=== PATIENT | female | born 1940 | race Caucasian/White ===

== ENCOUNTER 2023-11-15 22:25 | Outpatient (CLI) | payer MEDICARE, BC, SELFPAY | END 2023-11-15 22:26 | disposition home or self-care (01) | LOC: AMB 11-17 11:24 | PROVIDERS: Visit Provider Emergency Medicine Emergency Medical Services | DX: R42 Dizziness and giddiness (principal) | CPT/HCPCS: A0425; A0427 ==

== ENCOUNTER 2023-11-15 23:06 | Emergency (ER) | payer MEDICARE, BC, SELFPAY ==
[2023-11-15 23:17] VITALS: BP 174/83; PULSE 60; RESP 16; TEMP 36.4; O2SAT 97
--- NOTE | 2023-11-15 23:24 | ED.GENADULT ---
HPI - General Adult General Time Seen by Provider: 23:24 Date Seen: 11/15/23 Chief complaint: Dizziness/Vertigo Stated complaint: Dizzyness Time Seen by Provider: 11/15/23 23:24 Source: patient and RN notes reviewed Mode of arrival: ambulatory Limitations: no limitations History of Present Illness HPI narrative: 83 y/o female with history of hypertension, and has a pacemaker, presents with dizziness. Patient notes from room spinning dizziness that started about 7:00 p.m., patient called EMS about 11:15 p.m. because of persistent symptoms. She notes that she has had episodes of vertigo in the past but they do not usually last this long in this episode feels more severe. She denies associated blurry vision, double vision, numbness or tingling the arms or legs, difficulty speaking or swallowing. Symptoms are worse when she moves her head although generally seem to be getting better. Related Data Home Medications Medication Instructions Recorded Confirmed lisinopril 5 mg tablet 5 mg PO DAILY 11/15/23 11/15/23 metoprolol succinate 25 mg 12.5 mg PO DAILY 11/15/23 11/15/23 tablet,extended release 24 hr rosuvastatin .ROUTE 11/15/23 Previous Rx's Medication Instructions Recorded meclizine 25 mg chewable tablet 25 mg PO QID PRN vertigo #20 tabs 11/16/23 Allergies Allergy/AdvReac Type Severity Reaction Status Date / Time Sulfa (Sulfonamide Allergy Verified 11/15/23 23:23 Antibiotics) adhesives Allergy Uncoded 11/15/23 23:23 shell fish Allergy Uncoded 11/15/23 23:23 PFSH PFSH Social History Smoking Status: Never smoker Do you use any of these nicotine containing products: None How often do you have a drink containing alcohol: never How often do you have six or more drinks on one occasion: Never AUDIT-C Alcohol total score: 0 Non-prescribed substance use: denies use Exam Narrative: Exam Narrative: General: Well-developed and well-nourished, no acute distress Head: Atraumatic and normocephalic Eyes: Pupils are equal reactive, extraocular motions intact, conjunctiva clear ENT: External nose and ears are normal, posterior pharynx without erythema or exudate Neck: No midline cervical tenderness, full spontaneous range of motion the neck, trachea midline, no adenopathy Heart: Regular rate and rhythm no murmurs or thrills Lungs: Clear to auscultation bilaterally without wheezes or crackles Abdomen: Soft, nontender, nondistended with active bowel sounds Musculoskeletal: No tenderness, deformity, or edema Neurologic: Awake, alert, and oriented x3, no gross focal neurologic deficits, cranial nerves intact as tested. Able to elicit vertigo with rotation of the head did left although patient says it is mild and improved Psych: Mood and affect are appropriate Skin: No rashes Const: Vital Signs, click to edit/add: Vital Signs - 24 hr 11/15/23 23:17 11/15/23 23:26 11/15/23 23:30 Temperature 97.6 F Pulse Rate 60 60 Pulse Rate [Pulse Oximeter] 60 Respiratory Rate 16 Blood Pressure Blood Pressure [Ri ght Upper Arm] 174/83 H Pulse Oximetry 97 98 98 Oxygen Delivery Me thod Room Air 11/15/23 23:45 11/16/23 00:00 11/16/23 00:03 Temperature Pulse Rate 63 63 62 Pulse Rate [Pulse Oximeter] Respiratory Rate Blood Pressure 153/83 H Blood Pressure [Ri ght Upper Arm] Pulse Oximetry 97 97 97 Oxygen Delivery Me thod 11/16/23 00:04 11/16/23 00:29 11/16/23 00:30 Temperature Pulse Rate 60 62 62 Pulse Rate [Pulse Oximeter] Respiratory Rate Blood Pressure Blood Pressure [Ri ght Upper Arm] Pulse Oximetry 98 98 98 Oxygen Delivery Me thod 11/16/23 00:35 11/16/23 00:35 11/16/23 00:45 Temperature Pulse Rate 60 60 60 Pulse Rate [Pulse Oximeter] Respiratory Rate Blood Pressure Blood Pressure [Ri ght Upper Arm] Pulse Oximetry 98 98 89 Oxygen Delivery Me thod 11/16/23 00:57 11/16/23 01:00 11/16/23 01:03 Temperature Pulse Rate 61 60 62 Pulse Rate [Pulse Oximeter] Respiratory Rate 16 Blood Pressure 145/72 H 146/72 H Blood Pressure [Ri ght Upper Arm] Pulse Oximetry 98 97 96 Oxygen Delivery Me thod 11/16/23 01:03 11/16/23 01:03 11/16/23 01:30 Temperature Pulse Rate 62 62 60 Pulse Rate [Pulse Oximeter] Respiratory Rate 16 Blood Pressure 146/72 H 146/72 H Blood Pressure [Ri ght Upper Arm] Pulse Oximetry 96 96 98 Oxygen Delivery Me thod Room Air 11/16/23 01:32 Temperature Pulse Rate 61 Pulse Rate [Pulse Oximeter] Respiratory Rate Blood Pressure 143/71 H Blood Pressure [Ri ght Upper Arm] Pulse Oximetry 96 Oxygen Delivery Me thod Course Course ED Course: Patient seen examined, prior records reviewed. Patient presents today with some vertigo. Has had episodes like this in the past. Worse with head movement, some nausea but no vomiting. Symptoms are generally improved now. No other focal neurologic deficits and patient has no other complaints. Symptoms are most consistent with peripheral vertigo, Zofran and meclizine are given. CTA will be performed and if this is negative, patient can likely be discharged with outpatient follow-up. Reevaluation(s) Time of Reevaluation #1: 00:30 Reevaluation #1: Labs ordered and independently interpreted by me with mild leukopenia and mild thrombocytopenia,unknown if these are new or old, hemoglobin is normal. Basic metabolic panel is normal, magnesium is normal, COVID and influenza are negative. 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 Care was discussed with Neurosurgery at [place] who recommends follow-up with Neuro Interventional Radiology. Discussed this with patient and son. Questions answered and patient is stable for discharge. Vital Signs Vital signs: Initial Vital Signs Temperature 97.6 F 11/15/23 23:17 Temperature Source Temporal Artery Scan 11/15/23 23:17 Pulse Rate 60 11/15/23 23:17 Respiratory Rate 16 11/15/23 23:17 Blood Pressure 174/83 H 11/15/23 23:17 Blood Pressure Mean 113 H 11/15/23 23:17 Blood Pressure Position Supine 11/15/23 23:17 Pulse Oximetry 97 11/15/23 23:17 Oxygen Delivery Method Room Air 11/15/23 23:17 Vital Signs Temperature 97.6 F 11/15/23 23:17 Pulse Rate 60 11/15/23 23:17 Respiratory Rate 16 11/15/23 23:17 Blood Pressure 174/83 H 11/15/23 23:17 Pulse Oximetry 97 11/15/23 23:17 Oxygen Delivery Method Room Air 11/15/23 23:17 Temperature 97.6 F 11/15/23 23:17 Pulse Rate 61 11/16/23 01:32 Respiratory Rate 16 11/16/23 01:03 Blood Pressure 143/71 H 11/16/23 01:32 Pulse Oximetry 96 11/16/23 01:32 Oxygen Delivery Method Room Air 11/16/23 01:30 Medications Administered Medications: Discontinued Medications Generic Name Dose Route Start Last Admin Trade Name Barbara PRN Reason Stop Dose Admin Meclizine HCl 25 mg 11/15/23 23:36 11/15/23 23:45 Meclizine Hcl 25 Mg Tablet PO 11/15/23 23:37 25 mg ONCE ONE Administration Ondansetron HCl 4 mg 11/15/23 23:36 11/15/23 23:45 Ondansetron 2 Mg/Ml Inj IVP 11/15/23 23:37 4 mg ONCE ONE Administration Medical Decision Making Lab Data Labs: Lab Results 11/15/23 11/16/23 11/16/23 Range/Units 23:55 00:05 00:30 WBC 3.87 L (4.50-11.00) K/uL RBC 4.12 (4.00-5.20) m/uL Hgb 12.3 (12.0-16.0) gm/dL Hct 38.3 (33.0-51.0) % MCV 93 (80-100) fL MCH 30 (26-34) pg MCHC 32 (32-36) gm/dL RDW Coeff of Agata 13.4 (11.5-15.5) % Plt Count 106 L (140-440) K/uL Neut % (Auto) 72.6 H (42.0-72.0) % Lymph % (Auto) 19.9 L (20-44) % [place] % (Auto) 5.2 (0.0-11.0) % Eos % (Auto) 1.0 (0.0-7.0) % Baso % (Auto) 0.3 (0.0-3.0) % Neut # (Auto) 2.80 (1.7-7.0) K/uL Lymph # (Auto) 0.80 L (0.90-2.90) K/uL [place] # (Auto) 0.20 (0.00-0.90) K/UL Eos # (Auto) 0.00 (0.00-0.50) K/uL Baso # (Auto) 0.00 (0.00-0.30) K/uL Abs Immat Gran (auto) 0.00 (0.00-0.30) K/uL Imm/Tot Granulo (auto) 1.0 % Sodium 138 (135-149) mmol/L Potassium 4.1 (3.6-5.1) mmol/L Chloride 108 (96-114) mmol/L Carbon Dioxide 24 (20-32) mmol/L Anion Gap 6 L (7-15) mEq/L BUN 28 (7-30) mg/dL Creatinine 0.7 (0.5-1.5) mg/dL Estimated GFR 86 ml/min Glucose 117 H (60-115) mg/dL Calcium 9.0 (8.4-10.6) mg/dL Magnesium 2.1 (1.5-2.6) mg/dL SARS-CoV-2 (PCR) Negative SARS-CoV-2 (Negative) Influenza Type A (PCR) Negative PCR FLU A (Negative) Influenza Type B (PCR) Negative PCR FLU B (Negative) RSV (PCR) Negative PCR RSV (Negative) Lab Acknowledgement 11/16/23 Range/Units 00:35 WBC (4.50-11.00) K/uL RBC (4.00-5.20) m/uL Hgb (12.0-16.0) gm/dL Hct (33.0-51.0) % MCV (80-100) fL MCH (26-34) pg MCHC (32-36) gm/dL RDW Coeff of Agata (11.5-15.5) % Plt Count (140-440) K/uL Neut % (Auto) (42.0-72.0) % Lymph % (Auto) (20-44) % [place] % (Auto) (0.0-11.0) % Eos % (Auto) (0.0-7.0) % Baso % (Auto) (0.0-3.0) % Neut # (Auto) (1.7-7.0) K/uL Lymph # (Auto) (0.90-2.90) K/uL [place] # (Auto) (0.00-0.90) K/UL Eos # (Auto) (0.00-0.50) K/uL Baso # (Auto) (0.00-0.30) K/uL Abs Immat Gran (auto) (0.00-0.30) K/uL Imm/Tot Granulo (auto) % Sodium (135-149) mmol/L Potassium (3.6-5.1) mmol/L Chloride (96-114) mmol/L Carbon Dioxide (20-32) mmol/L Anion Gap (7-15) mEq/L BUN (7-30) mg/dL Creatinine (0.5-1.5) mg/dL Estimated GFR ml/min Glucose (60-115) mg/dL Calcium (8.4-10.6) mg/dL Magnesium (1.5-2.6) mg/dL SARS-CoV-2 (PCR) (Negative) Influenza Type A (PCR) (Negative) Influenza Type B (PCR) (Negative) RSV (PCR) (Negative) Lab Acknowledgement Test Added ECG Data Attestation: I personally reviewed and interpreted this ECG as follows: Prior ECG tracings: available for review Interpretation: Performed at 12:39 a.m. demonstrates paced rhythm, rate 63, no acute ischemic changes, QTC 534. No prior for comparison Discharge Plan Discharge Clinical Impression: Vertigo, Pseudoaneurysm Patient Disposition: Home, Self-Care Condition: Improved Instructions: Vertigo (ED) Additional Instructions: Take Zofran and meclizine as needed for dizziness Follow-up with primary care in 5-7 days Call [facility] [phone] to schedule and appointment with neurointerventional radiology. Activity Level: No Restrictions Discharge Diet: Regular Prescriptions: New meclizine 25 mg tablet,chewable 25 mg PO QID PRN (Reason: vertigo) Qty: 20 0RF No Action rosuvastatin .ROUTE metoprolol succinate 25 mg tablet extended release 24 hr 12.5 mg PO DAILY lisinopril 5 mg tablet 5 mg PO DAILY Follow Up/Referrals: Provider,Not a Local [Primary Care Provider] - Stand Alone Forms: MyHealth Info Instructions
[2023-11-15 23:26] VITALS: PULSE 60; O2SAT 98
[2023-11-15 23:30] VITALS: PULSE 60; O2SAT 98
--- NOTE | 2023-11-15 23:36 | CT_ITS ---
Patient: MIGUEL A MORA Facility:?[facility] Patient ID:?[id number] Site Patient ID:?[id number] Site :?[id number] Study:?CT-Neck Angio with 95cc [id number]/19/2024 12:39:30 AM Ordering Physician:April Diaz Final Report: DATE: 11/16/2023 CLINICAL HISTORY: Patient with dizziness. TECHNIQUE: Standard helical CT image acquisition of the neck up to the skull base after bolus intravenous contrast enhancement. 2D and 3D MIP images for post-processing were performed and interpreted on an independent workstation and 3D images were permanently archived. COMPARISON: CT same day. FINDINGS: The origins of the great vessels from the aortic arch are patent. The origin of the right vertebral artery is patent. The origin of the left vertebral artery is patent. The common carotid arteries are patent. There is no stenosis at the origin of the right internal carotid artery. There is no stenosis at the origin of the left internal carotid artery. The rest of the cervical segments of the internal carotid arteries are patent up to the skull base. The vertebral arteries are codominant. The cervical segments of the vertebral arteries are patent up to the skull base. The visualized lung apices are unremarkable. The thyroid gland demonstrates a goiter. The soft tissues of the neck are unremarkable. There are degenerative changes in the cervical spine. IMPRESSION: Patent cervical vasculature. Please note that all CT scans at this facility use dose modulation, iterative reconstruction, and/or weight-based dosing when appropriate to reduce radiation dose to as low as reasonably achievable. 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 Dictated by Violet Lobo MD @ Nov 16 2023 10:08AM Signed by:?Violet Lobo MD @11/16/2023 10:03:44 AM (Electronic Signature)
--- NOTE | 2023-11-15 23:36 | CT_ITS ---
Patient: MIGUEL A MORA Facility:?[facility] Patient ID:?[id number] Site Patient ID:?[id number]. Site :?[id number] Study:?CT-Head Angio with 95cc -7/19/2024 12:39:10 AM Ordering Physician:April Diaz Final Report: DATE: 11/16/2023 CLINICAL HISTORY: Patient with dizziness. TECHNIQUE: Standard helical CT image acquisition through the intracranial circulation following intravenous administration of contrast material with bolus tracking. 2D and 3D MIP images for post-processing were performed and interpreted on an independent workstation and 3D images were permanently archived. COMPARISON: CT same day. FINDINGS: There is no cerebral aneurysm or large vessel occlusion. The right internal carotid artery is normal. The right middle cerebral artery and its branches are normal. The right anterior cerebral artery and its branches are normal. The left internal carotid artery is normal. The left middle cerebral artery and its branches are normal. The left anterior cerebral artery and its branches are normal. The anterior communicating artery is well visualized and appears normal. The right vertebral artery and PICA are normal. The left vertebral artery and PICA are normal. The vertebral arteries are codominant. The basilar artery is patent and appears normal. The right posterior cerebral artery is normal. The left posterior cerebral artery is normal. The visualized venous structures are patent. IMPRESSION: Patent proximal intracranial vasculature without intracranial aneurysms. Please note that all CT scans at this facility use dose modulation, iterative reconstruction, and/or weight-based dosing when appropriate to reduce radiation dose to as low as reasonably achievable. Dictated by Violet Lobo MD @ 11/16/2023 10:06:50 AM Signed by:?Violet Lobo MD @11/16/2023 10:06:50 AM (Electronic Signature)
[2023-11-15 23:45] VITALS: PULSE 63; O2SAT 97
[2023-11-15] MEDS: ONDANSETRON 2 MG/ML inj 4 MG IVP (23:45)
[2023-11-15] MEDS: MECLIZINE HCL 25 MG TABLET PO (23:45)
[2023-11-16] VITALS (12 sets, daily range): BP systolic 143–153; BP diastolic 71–83; PULSE 60–63; RESP 16; O2SAT 89–98
[2023-11-16 00:09] LABS: Basophils Percent Auto 0.3 % (0.0-3.0); Hematocrit 38.3 % (33.0-51.0); Hemoglobin* 12.3 gm/dL (12.0-16.0); Lymphocytes Percent Auto 19.9 % (20-44); Mean Corpuscular HGB Conc 32 gm/dL (32-36); Mean Corpuscular Hemoglobin 30 pg (26-34); Mean Corpuscular Volume 93 fL (80-100); Monocytes Percent Auto 5.2 % (0.0-11.0); Neutrophils Percent Auto 72.6 % (42.0-72.0); Platelet Count* 106 K/uL (140-440); RDW Coefficient of Variation % 13.4 % (11.5-15.5); Red Blood Count 4.12 m/uL (4.00-5.20); White Blood Count* 3.87 K/uL (4.50-11.00)
[2023-11-16 00:23] LABS: Slide Review Reflex No
[2023-11-16 00:28] LABS: Magnesium* 2.1 mg/dL (1.5-2.6)
--- NOTE | 2023-11-16 00:33 | PC.NURSE ---
Pt return from CT via [facility] instructed results pt results back in 45 min
[2023-11-16 00:51] LABS: Anion Gap 6 mEq/L (7-15); Blood Urea Nitrogen* 28 mg/dL (7-30); Carbon Dioxide* 24 mmol/L (20-32); Chloride* 108 mmol/L (96-114); Creatinine* 0.7 mg/dL (0.5-1.5); Estimated Glomerular Filt Rate 86 ml/min; Glucose* 117 mg/dL (60-115); Potassium* 4.1 mmol/L (3.6-5.1); Sodium* 138 mmol/L (135-149)
[2023-11-16 01:22] LABS: PCR FLU A Negative PCR FLU A (Negative); PCR FLU B Negative PCR FLU B (Negative); PCR RSV Negative PCR RSV (Negative); SARS PCR* Negative SARS-CoV-2 (Negative)
--- NOTE | 2023-11-16 04:19 | ED.NURSE ---
Pt left white tank top in room after leaving. Pt and pt's son called and VM left. Tank top placed in pt belongings bag with pt's label and placed at front registration desk incase pt decides to pick it up.
== END 2023-11-16 01:55 | disposition home or self-care (01) ==
PROVIDERS: Emergency Provider Family Medicine
DX: R42 Dizziness and giddiness (principal); I72.9 Aneurysm of unspecified site
CPT/HCPCS: 36415; 70496; 70498; 80048; 83735; 85025; 87631; 93005; 96374; 99285; A9270; J2405; Q9967

== ENCOUNTER 2024-06-26 13:00 | Outpatient (RCR) | payer MEDICARE, BC, SELFPAY | END 2024-09-22 11:22 | disposition home or self-care (01) | PROVIDERS: Visit Provider Family Medicine | DX: R42 Dizziness and giddiness (principal); M25.551 Pain in right hip; M25.552 Pain in left hip; M54.2 Cervicalgia; R26.81 Unsteadiness on feet; M25.60 Stiffness of unspecified joint, not elsewhere classified; Z51.89 Encounter for other specified aftercare | CPT/HCPCS: 97110; 97112; 97140; 97161 ==

== ENCOUNTER 2025-08-20 12:40 | Outpatient (CLI) | payer MEDICARE, BC, SELFPAY | END 2025-08-20 12:41 | disposition home or self-care (01) | LOC: AMB 08-22 18:02 | PROVIDERS: PCP Family Medicine; Visit Provider Family Medicine | DX: R05.9 Cough, unspecified (principal); R06.02 Shortness of breath | CPT/HCPCS: A0425; A0427 ==

== ENCOUNTER 2025-08-20 13:30 | Inpatient (IN) | payer MEDICARE, BC, SELFPAY ==
[2025-08-20] VITALS (21 sets, daily range): BP systolic 94–130; BP diastolic 49–84; PULSE 65–74; RESP 18–38; TEMP 36.4–36.6; O2SAT 90–100; BMI 21.7; BMI 21.8
--- NOTE | 2025-08-20 13:32 | CRLHL7_ITS ---
For Patients: As a result of the 21st Century Cures Act, medical imaging exams and procedure reports are released immediately into your electronic medical record. You may view this report before your referring provider. If you have questions, please contact your health care provider. INDICATION: Pulmonary embolism suspected, high probability. TECHNIQUE: CT chest PE was acquired with 95 cc Omnipaque 350 IV contrast. Coronal and MIP reconstructions were performed. COMPARISON: None. FINDINGS: Evaluation for pulmonary embolism is limited by motion. No pulmonary embolism is seen. The aorta is unopacified. Nonaneurysmal. Lower lobe traction bronchiectasis is seen. There is extensive lower lobe predominant patchy ground-glass which is more peripheral within the upper lung alba. There is some peripheral reticulation. There may be early lower lobe honeycombing with no definitive honeycombing otherwise seen. No significant pleural effusion. The thyroid is prominent with likely nodularity. Follow-up thyroid ultrasound is recommended. Prominent precarinal lymph nodes noted. Recommend close attention on follow-up. Prominent left hilar lymph node is also noted measuring approximate 12 millimeters (series 4, image 95). Cardiomegaly is present. No significant effusion. Left pacemaker is noted. Images of the upper abdomen are unremarkable. No fractures. IMPRESSION: 1. Extensive lower lobe predominant patchy ground-glass with traction bronchiectasis. Differential includes diffuse lung injury. Interstitial lung disease, and combination of interstitial lung disease and superimposed pneumonia. Recommend correlation with a patient`s clinical history. Short-term high-resolution chest CT is recommended in 1 month. 2. No definite pulmonary embolism is seen. 3. Indeterminate mediastinal/hilar lymphadenopathy. Recommend close attention on follow-up. 4. Enlarged thyroid. Recommend correlation with routine thyroid ultrasound. Please note that all CT scans at this facility use dose modulation, iterative reconstruction, and/or weight-based dosing when appropriate to reduce radiation dose to as low as reasonably achievable. Dictated by Jonathan Batres MD @ 08/20/2025 3:19:09 PM (Electronically Signed)
--- OUTSIDE RECORDS SUMMARY | 2025-08-20 13:34 | XMS_ITS | Clinical Summary ---
Author Organization [facility] Address [address] [place] [id number] Care Team Providers Care Nurse Executive Name Role Phone Jenna Gallegos Primary Care Provider [phone] Allergies Active AllergyReactionsCriticalityNoted DateCommentsAdhesive Tape-Silicones Tsswyok8008/20/2023Shellfish DerivedNausea And Dcfdfzzh37/22/2023Sulfa (Sulfonamide Antibiotics)Zzsjvlvxukoyti59/22/2023 Medications MedicationSigDispense QuantityRefillsLast FilledStart DateEnd DateStatus fexofenadine (Rona Allergy) 180 mg tablet Take 180 mg by mouth once daily with a meal. Do not crush or chew.Active meclizine chewable (ANTIVERT) 25 mg tablet Chew 25 mg by mouth 3 times daily if needed.11/16/2023ctive ondansetron (ZOFRAN ODT) [address] 4 mg on the tongue every 8 hours if needed for Nausea/Vomiting.11/16/2023 Active aspirin (ECOTRIN) 81 mg enteric coated tablet Indications:Fibromuscular dysplasiaTake 1 Tablet (81 mg) by mouth once daily with a meal.4Active ketoconazole 2 % cream PLEASE SEE ATTACHED FOR DETAILED EJGJCAPVNE62/26/2025Active Graduated Compression Stockings Indications:Fibromuscular dysplasia,Venous catgtqforuwqt09-72 mm/Hg thigh high compression stockings - Venous insufficiency 2 Packet 5Active ipratropium (ATROVENT NASAL) 21 mcg (0.03 %) nasal spray Indications:Allergic rhinitis due to pollen, unspecified seasonalityInhale 2 Sprays into affected nostril(s) three times daily. [place] dose in each nostril. 90 mL 5Active lisinopriL (PRINIVIL; ZESTRIL) 5 mg tablet Indications:Non-ischemic cardiomyopathy (HC)Take 1 Tablet (5 mg) by mouth once daily. 90 Tablet tive metoprolol succinate (TOPROL XL) 25 mg Sustained-Release tablet Indications:Non-ischemic cardiomyopathy (HC),Atrial tachycardia (HC)Take 0.5 Tablets (12.5 mg) by mouth once daily. 45 Tablet tive rosuvastatin (CRESTOR) 10 mg tablet Indications:Non-ischemic cardiomyopathy (HC)TAKE 1 TABLET BY MOUTH EVERYDAY AT BEDTIME 90 Tablet tive metroNIDAZOLE (METROCREAM) 0.75 % cream Indications:RosaceaApply topically to affected area(s) two times daily. 45 g 5Active Active Problems ProblemNoted DateDiagnosed DateStage 3 chronic kidney disease, unspecified whether stage 3a or 3b CKD06/15/2025trial tachycardia, zimngimhpz95/03/2024 Atrial bwtuzlfouhi17/22/2023Non-ischemic ddghtgtzpaxsxw44/22/2023 Resolved Problems ProblemNoted DateDiagnosed DateResolved DateNon-sustained ventricular gwbcmylbstx70 Encounters DateTypeDepartmentCare TebjMhwxqtvblfe54/21/4582Ctdvli68/04/2025 11:00 AM RN TELEHEALTH [facility] [address] [address] [facility] (Hearing test)07/03/20259760Csufgu55/27/2025 1:30 PM CDTNurse/Clinic Staff Only [address] [address] Blood Pressure (114/56)06/25/2025 1:00 PM CDTAncillary Procedure [facility] [address] [place] [address] 06/25/20253458Hceowx34/17/2025 11:05 AM CDTOffice Visit [address] [address] Jenna Gallegos, DO Medicare ANNUAL (subsequent) Visit (84 yr/); Leg Pain/problem (would like second opinion on leg surgery that is recommended for circulation from Dr. Oro) 06/15/2025Refill [facility] [address] [place] [address] Jenna Gallegos, DO Refill Request; QPCTOUQPHP85/17/2428Mnibpp50/15/2025Refill [facility] [address] [place] [address] Jenna Gallegos, DO Refill Request (Lisinopril)05/21/2025Orders Only [facility] [address] [place] [address] Renee Oro MD <No scans attached>from Last 3 Months Immunizations ImmunizationAdministration DatesNext DueCOVID-19 VACCINE SPIKEVAX (MODERNA 50MCG/0.5ML) 12YO+ PFS12/13/2024Influenza, High-dose Hkkkgyfbivh26/04/2025, 4RSV, Recombinant ADJ Reconstituted (Arexvy 120MCG/0.5mL)10/10/2024Tdap 03/23/2025Zoster (Shingrix-RZV, recombinant)03/23/2025 Social History Tobacco UseTypesPacks/DayYears UsedDateSmoking Tobacco: FormerCigarettes0.150498 - 1992Smokeless Tobacco: Never Tobacco Cessation:Counseling Given: Not Answered Comments:quit when she was 22 Alcohol UseStandard Drinks/WeekCommentsYes0 (1 standard drink = 0.6 oz pure alcohol)a beer once a monthPHQ-2AnswerDate RecordedPHQ-2 TOTAL USEUL626 Social ConnectionsAnswerDate RecordedDo you often feel lonely or isolated from those around you?404lcohol UseAnswerDate RecordedHow often do you have a drink containing alcohol?110How many drinks containing alcohol do you have on a typical day when you are drinking?How often do you have five or more drinks on one occasion?Financial Resource StrainAnswer Date RecordedDifficulty of Paying Living Vwzbxrah840/16/2025Difficulty of Paying Living ExpensesNot on file12/13/2024Food InsecurityAnswerDate RecordedDo you worry your food will run out before you are able to buy more? Transportation NeedsAnswerDate RecordedDoes lack of transportation keep you from medical appointments?Does lack of transportation keep you from work, meetings or getting things that you need?Housing StabilityAnswerDate RecordedWhat is your housing situation today?UtilitiesAnswerDate RecordedDo you have trouble paying for utilities (for example, heat, electricity, water, phone)?CommentsUnknownSex and Gender InformationValueDate RecordedSex Assigned at BirthNot on fileLegal SexFemale 08/04/2023 10:14 AM CSTGender IdentityNot on fileSexual OrientationNot on file Last Filed Vital Signs Vital SignReadingTime TakenCommentsBlood Ggjbblcq638/561 1:56 PM CDT Msxjj236606/25/2025 1:19 PM XEENrjssvlumsm01.5 ??C (97.7 ??F)06/15/2025 11:13 AM CDTRespiratory Rate--Oxygen Bqgnotrjxn25%06/25/2025 1:19 PM CDTInhaled Oxygen Concentration--Vtrpra62.4 kg (139 lb 12.8 oz)06/15/2025 11:13 AM TPADavekm677.4 cm (5' 7.09)06/15/2025 11:13 AM CDTBody Mass Index21.8406/15/2025 11:13 AM CDT Plan of Treatment DateTypeDepartmentCare Team (Latest Contact Info)Qstjhfmocpr88/26/2025 11:05 AM CSTOffice Visit [facility] [address] [facility] [place] [address] Jenna Gallegos DO [address] [facility] [place] [address] 09/19/2025ardiac Device Check [facility] [phone] 10/08/2025 11:00 AM CSTAncillary Procedure [facility] [address] [place] [address] Health MaintenanceDue DateLast DoneCommentsCOVID-19 vaccine series (2024- season)/11/2024, 12/13/2024, 4BMI (ht and wt on same day) for age 18+/, 04/26/2024, 08/20/2023epression screening for age 12+/, 04/26/2024, 12/03/2023, Additional history exists Medicare Wellness for age 65+, 04/26/2024Zoster (shingles) series for age 50+ (2 of 2)Postponed from 05/18/2025 (Provider discretion)Tetanus uwwgqbd87/25/21539303/23/2025RSV vaccine for adults or mpogvpspyBztmejlsh50/11/2025Influenza BhbwrhmPpgjhwpix97/04/2025, 05/05/2024 DEXA/DXA scan for age 65+Bkspphrhl98/27/2025Hepatitis B series for 19+Aged OutNo longer eligible based on patient's age to complete this topicPneumococcal series for age 50+Discontinued Procedures Procedure NamePriorityDate/TimeAssociated DiagnosisCommentsXR DXA BONE DENSITY 2 SITES AXIAL AND 1 SITE COGGWJXTNWAzcxuvt82/27/2025 1:13 PM CDT Postmenopausal LIPID PANEL W REFLEX MEASURED HBYItjaoxd23/17/2025 12:00 PM CDT Mixed hyperlipidemia BASIC METABOLIC MDMVUYddsjci98/17/2025 12:00 PM CDT Non-ischemic cardiomyopathy (HC) Atrial tachycardia (HC) from Last 3 Months Results * (ABNORMAL) XR DXA BONE DENSITY 2 SITES AXIAL AND 1 SITE PERIPHERAL (06/25/2025 1:13 PM CDT)Anatomical RegionLateralityModalityLUMBAR SPINEOtherSpecimen (Source)Anatomical Location / LateralityCollection Method / VolumeCollection TimeReceived Time Impressions 07/01/2025 4:17 PM RN TELEHEALTH Osteoporosis. RECOMMENDATIONS: The National Osteoporosis Foundation recommends pharmacologic treatment for patients with T-scores of -2.5 or less, patients with prior history of fragility fractures, or patients with 10-year probability of greater than 3% at hips or greater than 20% of suffering major osteoporotic fractures. Recommend continued optimization of calcium and vitamin D intake through dietary means and/or supplementation and regular exercise. Consider pharmacologic therapy for osteoporosis. Follow-up bone density reading in 2 years if therapy initiated to assess therapeutic efficacy. Kyara English PA-C [facility] 07/01/2025 Narrative 07/01/2025 4:17 PM RN TELEHEALTH For Patients: Results are automatically released to your [employer] [facility] account once available, in compliance with federal regulations. This means that you may see your results before your provider has had a chance to review them. Please allow 2-3 business days for your provider to comment on the results. XR DXA Bone Mineral Density (BMD) EXAM LOCATION: [address] [address] PATIENT NAME: Lisa Norman DATE OF : 1940 EXAM DATE: 06/25/2025 REQUESTING PROVIDER: Jenna Gallegos DO GENDER AT : female HEIGHT: 5' 7.09 (06/15/2025) WEIGHT: ??139 lb 12.8 oz (06/15/2025) MENOPAUSAL STATUS: Postmenopausal RACE/ETHNICITY: White RISK FACTORS: Smoking (prior) and White Race CURRENT MEDICATION FOR BONE LOSS: NONE INDICATION: Post-Menopause COMPARISON DATE(S): None DXA scans are compared to prior studies for a patient only when the two (or more) studies were performed on the same scanner. It is not possible to compare data generated on one scanner to data from another because there are not standards in DXA equipment. This applies even if the two scanners are made by the same lacquer pin press operator. PROCEDURE: Dual-energy x-ray absorptiometry performed with routine technique. Reporting is completed in the form of a T-score. The T-score represents the standard deviation from peak bone mass based on young healthy adult. A Z-score is used for diagnosis in premenopausal women, and for men under the age of 50. FINDINGS: RESULT LUMBAR SPINE L2 - L4 ??(EXCLUDE L1) ??BMD: 1.477 g/cm2 T-Score: + 2.1 Z-Score: + 4.1 Change from prior: ??None RESULTS FEMUR Left femoral neck BMD: 1.021 g/cm2 T-Score: - 0.1 Z-Score: + 2.3 Change from prior: ??None Right femoral neck BMD: 1.000 g/cm2 T-Score: - 0.3 Z-Score: + 2.1 Change from prior: ??None Left hip BMD: 0.872 g/cm2 T-Score: - 1.1 Z-Score: + 1.2 Change from prior: ??None Right hip BMD: 0.915 g/cm2 T-Score: - 0.7 Z-Score: + 1.6 Change from prior: ??None RESULT FOREARM Left Forearm distal radius BMD: 0.484 g/cm2 T-Score: - 3.1 Z-Score: + 0.0 Change from prior: ??None WHO criteria: Normal: T-score at or above -1 SD Osteopenia: T-score between -1.1 and -2.4 SD Osteoporosis: T-score at or below -2.5 SD Authorizing ProviderResult TypeResult StatusTamara Ramona Detert DODEXAFinal Result * (ABNORMAL) LIPID PANEL W REFLEX MEASURED LDL (06/15/2025 12:00 PM CDT) ComponentValueRef RangeTest MethodAnalysis TimePerformed AtPathologist SignatureCHOLESTEROL, DKVDK475<200 mg/dL06/16/2025 5:00 AM CDTQUEST PVSERRMLDUVVAJBEVQAYACNP45<150 mg/dL06/16/2025 5:00 AM CDTQUEST DIAGNOSTICSHDL LWLUYIKJDGF86> OR = 50 mg/dL06/16/2025 5:00 AM CDTQUEST DIAGNOSTICSNON HDL UWAAXAUIVNV465<130 mg/dL (calc)06/16/2025 5:00 AM CDTQUEST DIAGNOSTICSComment: For patients with diabetes plus 1 major ASCVD risk factor, treating to a non-HDL-C goal of <100 mg/dL (LDL-C of <70 mg/dL) is considered a therapeutic option. CHOL/HDLC RATIO2.7<5.0 (calc)06/16/2025 5:00 AM CDT[facility] LDL-CIZZUHRKOWN882(H)mg/dL (calc)06/16/2025 5:00 AM CDTQUEST DIAGNOSTICSComment: Reference range: <100 Desirable range <100 mg/dL for primary prevention; <70 mg/dL for patients with CHD or diabetic patients with > or = 2 CHD risk factors. LDL-C is now calculated using the German calculation, which is a validated novel method providing better accuracy than the Friedewald equation in the estimation of LDL-C. Jose Raul SIFUENTES et al. SUSSY. 2013;310(19): 7298-5050 (http://education.[employer].SavingGlobal/faq/QCI072) Specimen (Source)Anatomical Location / LateralityCollection Method / Volume Collection TimeReceived TimeBloodBLOOD SPECIMEN / UnknownQuest Collect / Unknown 06/15/2025 12:00 PM CDT1 12:00 PM CDT Narrative Authorizing ProviderResult TypeResult StatusTamara Ramona Izaguirret DOCHEMISTRYFinal ResultPerforming OrganizationAddressCity/State/ZIP CodePhone Number [facility] [address] [phone], * (ABNORMAL) BASIC METABOLIC PANEL (06/15/2025 12:00 PM CDT)ComponentValueRef RangeTest MethodAnalysis TimePerformed AtPathologist RzwnzapeoLCEHDX076885 - 146 mmol/L1 5:00 AM CDTQUEST DIAGNOSTICSPOTASSIUM4.83.5 - 5.3 mmol/L 06/16/2025 5:00 AM CDTQUEST DIAGNOSTICSCARBON HFXMBVN7049 - 32 mmol/L 06/16/2025 5:00 AM CDTQUEST IXUASLPDMIRFDIPWER7264 - 99 mg/dL06/16/2025 5:00 AM CDTQUEST DIAGNOSTICSComment: ? Fasting reference interval CALCIUM9.48.6 - 10.4 mg/dL06/16/2025 5:00 AM CDTQUEST DIAGNOSTICSCREATININE1.12 (H)0.60 - 0.95 mg/dL06/16/2025 5:00 AM CDTQUEST DIAGNOSTICSBUN/CREATININE RATIO 226 - 22 (calc)06/16/2025 5:00 AM CDTQUEST RZQWPWNSBRSZNWM39(L)> OR = 60 mL/min/1.83a97706/16/2025 5:00 AM CDTQUEST DIAGNOSTICSUREA NITROGEN (BUN)257 - 25 mg/dL06/16/2025 5:00 AM CDTQUEST DIAGNOSTICSELECTROLYTE FHIISJZ75 - 17 mmol/L (calc)06/16/2025 5:00 AM CDTQUEST OJOTOPAVKCINEDVVYEW41804 - 110 mmol/L 06/16/2025 5:00 AM CDTQUEST DIAGNOSTICSSpecimen (Source)Anatomical Location / LateralityCollection Method / VolumeCollection TimeReceived TimeBloodBLOOD SPECIMEN / UnknownQuest Collect / Kbemcwb1806/15/2025 12:00 PM CDT1 12:00 PM CDT Narrative Authorizing ProviderResult TypeResult StatusTamara Ramona Detert DOCHEMISTRYFinal ResultPerforming OrganizationAddressCity/State/ZIP CodePhone Number [facility] [address] [phone], from Last 3 Months Insurance * Guarantor: Lisa Norman TypeRelation to PatientDate of BirthPhone Billing AddressPersonal/FuxfxxBfvd55/26/1941 [id number] [place] [address] Care Teams Team MemberRelationshipSpecialtyStart DateEnd Date Jenna [place]leg[place] [address] PCP - GeneralFamily Uelkdehx43/7/23
--- NOTE | 2025-08-20 13:36 | ED_ITS ---
HPI - General Adult General Date Seen: 08/20/25 Chief complaint: Shortness of Breath/Dyspnea Stated complaint: Shortness of Breath, weakness Time Seen by Provider: 08/20/25 13:31 History of Present Illness HPI narrative: Patient is an 84-year-old brought in by EMS. She lives at home with her daughter, for the past 5 days she has been having worsening shortness of breath and cough. She says that she knew she was getting sick last week when she started to feel just generally weak and tired. The cough has gotten steadily worse. She is not chronically on oxygen, denies any under lying lung disease, no history of smoking. [employer] report notes that her O2 sats on room air were in the mid 80s, they put her on a few L by nasal cannula and report that she improved to the low 90s on that. She feels improved on oxygen. She denies chest pain, abdominal pain, vomiting, diarrhea, lower extremity swelling beyond her usual, or other new symptoms. Past medical history reviewed and notable for hypertension. She says she is generally quite healthy and active. Related Data Home Medications ?Medication ?Instructions ?Recorded ?Confirmed lisinopril 5 mg tablet 5 mg PO DAILY 11/15/2308/20 metoprolol succinate 25 mg 12.5 mg PO DAILY 11/15/23 1 10/21/24 tablet,extended release 24 hr aspirin 81 mg tablet,delayed 81 mg PO DAILY 08/20/25 1 10/21/24 release ([place] [facility]) fexofenadine 180 mg tablet 180 mg PO DAILY 08/20/25 ([facility]) ipratropium bromide 21 mcg (0.03 2 spray intranasal TI D 08/20/25 08/20/25 %) nasal spray meclizine 25 mg chewable tablet 25 mg PO TID PRN verti go 08/20/25 08/20/25 rosuvastatin 10 mg tablet 10 mg PO HS 08/20/25 5 Allergies Allergy/AdvReac Type Severity Reaction Status Date / Time Sulfa (Sulfonamide Allergy Verified 08/20/25 14:58 Antibiotics) adhesives Allergy Uncoded 08/20/25 14:58 shell fish Allergy Uncoded 08/20/25 14:58 Review of Systems Status of ROS: Reports: 10 or more systems reviewed and unremarkable except as noted in History and below [facility] Social History Smoking Status: Never smoker Do you use any of these nicotine containing products: None How often do you have a drink containing alcohol: never How often do you have six or more drinks on one occasion: Never AUDIT-C Alcohol total score: 0 Non-prescribed substance use: denies use Exam Narrative: Exam Narrative: Vital signs reviewed In general, an alert, nontoxic elderly woman. She is on oxygen, coughs somewhat frequently but otherwise does not look uncomfortable. Head: Normocephalic, atraumatic. Eyes: Sclera clear. Pupils equal and reactive. ENT: Mucous membranes moist. Neck: Supple without adenopathy. Heart: Regular rate and rhythm without murmur. Lungs: She has some scattered rhonchi and faint crackles primarily on the right. No increased work of breathing. Frequent coughing. Abdomen: Soft, nontender to palpation. Extremities: Well perfused, pulses intact. No significant edema. Neurologic: Alert, conversant. Speech fluent, face symmetric. Moves all extremities equally. Skin: Warm, dry well perfused. Affect: Normal. Const: Vital Signs, click to edit/add: Vital Signs - 24 hr 08/20/25 13:33 08/20/25 14:09 08/20/25 14:15 Temperature 97.5 F L Pulse Rate 67 Pulse Rate [Right Pulse Oximeter] 74 Respiratory Rate 18 30 H Blood Pressure Blood Pressure [Ri ght Upper Arm] 94/53 L Pulse Oximetry 99 97 94 Oxygen Delivery Me thod Room Air Oxygen Flow Rate 08/20/25 14:15 08/20/25 14:15 08/20/25 14:30 Temperature Pulse Rate 66 67 Pulse Rate [Right Pulse Oximeter] Respiratory Rate 34 H 37 H Blood Pressure Blood Pressure [Ri ght Upper Arm] Pulse Oximetry 94 99 95 Oxygen Delivery Me thod Nasal Cannula Oxygen Flow Rate 4 08/20/25 14:35 08/20/25 14:36 08/20/25 14:53 Temperature Pulse Rate 67 68 Pulse Rate [Right Pulse Oximeter] Respiratory Rate 24 29 H 22 Blood Pressure 128/84 Blood Pressure [Ri ght Upper Arm] Pulse Oximetry 94 97 Oxygen Delivery Me thod Nasal Cannula Oxygen Flow Rate 3 08/20/25 15:00 08/20/25 15:02 08/20/25 15:02 Temperature Pulse Rate 65 66 66 Pulse Rate [Right Pulse Oximeter] Respiratory Rate 32 H 38 H 38 H Blood Pressure 123/57 L 123/57 L Blood Pressure [Ri ght Upper Arm] Pulse Oximetry 99 100 100 Oxygen Delivery Me thod Oxygen Flow Rate 08/20/25 15:15 08/20/25 15:30 08/20/25 15:32 Temperature Pulse Rate 67 69 68 Pulse Rate [Right Pulse Oximeter] Respiratory Rate 37 H 35 H 30 H Blood Pressure 124/57 L Blood Pressure [Ri ght Upper Arm] Pulse Oximetry 100 100 100 Oxygen Delivery Me thod Nasal Cannula Oxygen Flow Rate 3 08/20/25 15:45 08/20/25 16:00 08/20/25 16:02 Temperature Pulse Rate 65 67 65 Pulse Rate [Right Pulse Oximeter] Respiratory Rate 30 H 19 26 H Blood Pressure 120/53 L Blood Pressure [Ri ght Upper Arm] Pulse Oximetry 97 95 93 Oxygen Delivery Me thod Nasal Cannula Oxygen Flow Rate 3 Course Course ED Course: Patient presents with respiratory symptoms, worsening shortness of breath and significant hypoxia at home. Initial blood pressure was recorded at 94/53, but she is not febrile, tachycardic, no initial markers for sepsis. Medics gave her 250 mL of saline, I have held off on further well we figure out what is causing her home hypoxia. I have ordered labs, CT of the chest ordered given her age in for found hypoxia to evaluate for pneumonia, pulmonary embolism or other contributing factors such as congestive heart failure, effusion. She was maintained on oxygen here, on 3 L she is about 94% is feeling more comfortable with her breathing. She was maintained on the monitor, normal sinus rhythm. Her labs were notable for normal white blood cell count of 6, her hemoglobin was 11.7. CRP was a little elevated at 7, lactate normal. Procalcitonin pending. Venous gas was normal. Metabolic panel is pretty unremarkable. Point of care troponin high sensitivity was 16.7, troponin I was 0.02. Do not think this is of significance. BNP was mildly elevated at 13 70, no previous baseline available. COVID influenza and RSV are negative. CT scan by my review showed significant probably infiltrate in both lungs, the radiology report is reviewed as well and they note that this could be interstitial lung disease with superimposed pneumonia, or COPD interstitial lung disease, or lung injury. Patient does not have any prior history of pulmonary disease that she is aware of, it sounds like she does not typically have much in the way of shortness of breath, we do not have prior lung imaging on her. For acute reasonable to treat this is a pneumonia given her clinical history, I gave her Rocephin and doxycycline. She had an EKG here which showed a paced rhythm, her QT corrected did read out at 501. Discussed with hospitalist, will be admitted for management of significant hypoxia, possible chronic underlying lung disease with superimposed pneumonia. She remains at risk for respiratory deterioration and need for more aggressive management. Diagnosis: Hypoxia. Pneumonia. Vital Signs Vital signs: Initial Vital Signs Temperature 97.5 F L 08/20/25 13:33 Temperature Source Temporal Artery Scan 08/20/25 13:33 Pulse Rate 74 08/20/25 13:33 Pulse Rhythm Regular 08/20/25 13:33 Pulse Strength 3+ Normal 08/20/25 13:33 Respiratory Rate 18 08/20/25 13:33 Blood Pressure 94/53 L 08/20/25 13:33 Blood Pressure Mean 66 L 08/20/25 13:33 Blood Pressure Position Sitting 08/20/25 13:33 Pulse Oximetry 99 08/20/25 13:33 Oxygen Delivery Method Room Air 08/20/25 13:33 Vital Signs Temperature 97.5 F L 08/20/25 13:33 Pulse Rate 74 08/20/25 13:33 Respiratory Rate 18 08/20/25 13:33 Blood Pressure 94/53 L 08/20/25 13:33 Pulse Oximetry 99 08/20/25 13:33 Oxygen Delivery Method Room Air 08/20/25 13:33 Temperature 97.5 F L 08/20/25 13:33 Pulse Rate 65 08/20/25 16:02 Respiratory Rate 26 H 08/20/25 16:02 Blood Pressure 120/53 L 08/20/25 16:02 Pulse Oximetry 93 08/20/25 16:02 Oxygen Delivery Method Nasal Cannula 08/20/25 16:02 Oxygen Flow Rate 3 08/20/25 16:02 Medications Administered Medications: Generic Name Dose Route Start Last Admin Trade Name Freq PRN Reason Stop Dose Admin Doxycycline Hyclate 100 mg/ 100 mls @ 100 mls/hr 08/20/25 16:00 08/20/25 16:20 Sodium Chloride IVPB 08/20/25 16:59 100 mls/hr ONCE ONE Administration Discontinued Medications Generic Name Dose Route Start Last Admin Trade Name Barbara PRN Reason Stop Dose Admin Azithromycin 500 mg 08/20/25 15:44 08/20/25 15:58 Azithromycin 250 Mg Tablet PO 08/20/25 15:45 500 mg ONCE ONE Administration Medical Decision Making Lab Data Lab results reviewed: Yes I reviewed the patient's lab results Labs: Lab Results 08/20/25 08/20/25 08/20/25 Range/Units 13:33 13:36 13:52 WBC 6.08 (4.50-11.00) K/uL RBC 3.95 L (4.00-5.20) m/uL Hgb 11.7 L (12.0-16.0) gm/dL Hct 35.9 (33.0-51.0) % MCV 91 (80-100) fL MCH 30 (26-34) pg MCHC 33 (32-36) gm/dL RDW Coeff of Agata 14.1 (11.5-15.5) % Plt Count 120 L (140-440) K/uL Neut % (Auto) 83.8 H (42.0-72.0) % Lymph % (Auto) 7.1 L (20-44) % [place] % (Auto) 8.4 (0.0-11.0) % Eos % (Auto) 0.2 (0.0-7.0) % Baso % (Auto) 0.3 (0.0-3.0) % Neut # (Auto) 5.10 (1.7-7.0) K/uL Lymph # (Auto) 0.40 L (0.90-2.90) K/uL [place] # (Auto) 0.50 (0.00-0.90) K/UL Eos # (Auto) 0.01 (0.00-0.50) K/uL Baso # (Auto) 0.02 (0.00-0.30) K/uL Abs Immat Gran (auto) 0.01 (0.00-0.30) K/uL Imm/Tot Granulo (auto) 0.2 % VBG pH 7.398 (7.32-7.43) VBG pCO2 43 (40-50) mmHG VBG pO2 < 30.1 (25-47) mmHG VBG HCO3 27 (21-28) mmol/L Sodium 133 L (135-149) mmol/L Potassium 4.1 (3.6-5.1) mmol/L Chloride 100 (96-114) mmol/L Carbon Dioxide 27 (20-32) mmol/L Anion Gap 6 L (7-15) mEq/L BUN 26 (7-30) mg/dL Creatinine 1.1 (0.5-1.5) mg/dL Estimated GFR 50 ml/min Glucose 130 H (60-115) mg/dL Lactate 1.5 (0.5-1.9) mmol/L Calcium 8.5 (8.4-10.6) mg/dL Total Bilirubin 1.0 (0.1-1.5) mg/dL AST 40 H (12-35) U/L ALT 20 (4-35) U/L Alkaline Phosphatase 83 (40-150) U/L Troponin I 0.02 (0.01-0.04) ng/mL POC Troponin I High Sensi 16.7 H* (2.9-13.0) pg/mL C-Reactive Protein 7.1 H (0.5-1.0) mg/dL NT-Pro-B Natriuret Pep 1370 H (See Note) pg/mL Total Protein 6.7 (6.0-8.3) g/dL Albumin 3.9 (3.3-5.0) g/dL Procalcitonin 0.10 (<0.50) ng/mL SARS-CoV-2 (PCR) Negative SARS-CoV-2 (Negative) Influenza Type A (PCR) Negative PCR FLU A (Negative) Influenza Type B (PCR) Negative PCR FLU B (Negative) RSV (PCR) Negative PCR RSV (Negative) Imaging Data CT scan - chest: Attestation: I have reviewed the pertinent imaging results. Radiologist's impression: Patient: MIGUEL A MORA Facility: [facility] Site . Site : 1940 Study: CT-Chest Angio PE [address] [place] [address] 370-08/20/2025 2:57:51 PM Ordering Physician: Jacobo Oconnor Final Report: INDICATION: Pulmonary embolism suspected, high probability. TECHNIQUE: CT chest PE was acquired with 95 cc Omnipaque 350 IV contrast. Coronal and MIP reconstructions were performed. COMPARISON: None. FINDINGS: Evaluation for pulmonary embolism is limited by motion. No pulmonary embolism is seen. The aorta is unopacified. Nonaneurysmal. Lower lobe traction bronchiectasis is seen. There is extensive lower lobe predominant patchy ground-glass which is more peripheral within the upper lung alba. There is some peripheral reticulation. There may be early lower lobe honeycombing with no definitive honeycombing otherwise seen. No significant pleural effusion. The thyroid is prominent with likely nodularity. Follow-up thyroid ultrasound is recommended. Prominent precarinal lymph nodes noted. Recommend close attention on follow-up. Prominent left hilar lymph node is also noted measuring approximate 12 millimeters (series 4, image 95). Cardiomegaly is present. No significant effusion. Left pacemaker is noted. Images of the upper abdomen are unremarkable. No fractures. IMPRESSION: 1. Extensive lower lobe predominant patchy ground-glass with traction bronchiectasis. Differential includes diffuse lung injury. Interstitial lung disease, and combination of interstitial lung disease and superimposed pneumonia. Recommend correlation with a patient`s clinical history. Short-term high-resolution chest CT is recommended in 1 month. 2. No definite pulmonary embolism is seen. 3. Indeterminate mediastinal/hilar lymphadenopathy. Recommend close attention on follow-up. 4. Enlarged thyroid. Recommend correlation with routine thyroid ultrasound. Please note that all CT scans at this facility use dose modulation, iterative reconstruction, and/or weight-based dosing when appropriate to reduce radiation dose to as low as reasonably achievable. Dictated by Jonathan Batres MD @ 08/20/2025 3:19:09 PM Procedures ABG Interpretation ABG Results: 08/20/25 13:52 VBG pH 7.398 VBG pCO2 43 VBG pO2 < 30.1 VBG HCO3 27
[2025-08-20 13:59] LABS: HCO3 VBG 27 mmol/L (21-28); Lactate Sepsis w/Reflex* 1.5 mmol/L (0.5-1.9); PCO2 VBG 43 mmHG (40-50); PO2 VBG < 30.1 mmHG (25-47); pH VBG 7.398 (7.32-7.43)
[2025-08-20 14:09] LABS: Hematocrit* 35.9 % (33.0-51.0); Hemoglobin* 11.7 gm/dL (12.0-16.0); Immature Granulocytes Abs Auto 0.01 K/uL (0.00-0.30); Immature Granulocytes Pct Auto 0.2 %; Mean Corpuscular HGB Conc 33 gm/dL (32-36); Mean Corpuscular Hemoglobin 30 pg (26-34); Mean Corpuscular Volume 91 fL (80-100); RDW Coefficient of Variation % 14.1 % (11.5-15.5); Red Blood Count* 3.95 m/uL (4.00-5.20); White Blood Count* 6.08 K/uL (4.50-11.00)
[2025-08-20 14:14] LABS: Albumin* 3.9 g/dL (3.3-5.0); Chloride* 100 mmol/L (96-114); Lymphocytes Absolute Auto 0.40 K/uL (0.90-2.90); Slide Review Reflex No; Sodium* 133 mmol/L (135-149)
[2025-08-20 14:15] LABS: Potassium* 4.1 mmol/L (3.6-5.1)
[2025-08-20 14:17] LABS: Blood Urea Nitrogen* 26 mg/dL (7-30); Creatinine* 1.1 mg/dL (0.5-1.5); Estimated Glomerular Filt Rate 50 ml/min
[2025-08-20 14:18] LABS: Alanine Aminotransferase* 20 U/L (4-35); Alkaline Phosphatase* 83 U/L (40-150); Anion Gap 6 mEq/L (7-15); Aspartate Amino Transferase* 40 U/L (12-35); Bilirubin Total* 1.0 mg/dL (0.1-1.5); Calcium* 8.5 mg/dL (8.4-10.6); Carbon Dioxide* 27 mmol/L (20-32); Glucose* 130 mg/dL (60-115); Total Protein* 6.7 g/dL (6.0-8.3)
[2025-08-20 14:31] LABS: NT Pro B Type NatriureticPept* 1370 pg/mL (See Note)
[2025-08-20 14:33] LABS: PCR FLU A Negative PCR FLU A (Negative); PCR FLU B Negative PCR FLU B (Negative); PCR RSV Negative PCR RSV (Negative); SARS PCR* Negative SARS-CoV-2 (Negative)
[2025-08-20] MEDS: AZITHROMYCIN 250 MG TABLET 500 MG PO (15:58)
[2025-08-20 16:13] LABS: Procalcitonin* 0.10 ng/mL (<0.50)
--- NOTE | 2025-08-20 16:16 | RESP.RT ---
Patient seen in ED, on NC 3 Lpm, with SaO2 92%, breathing regular/easy. Good clear voice, cough to command, good forceful cough able to clear secretions when present. BBS with both upper lobes fair to good air movement, LLL slightly diminished, RLL more diminished.
[2025-08-20] MEDS: DOXYCYCLINE HYCLATE 100 MG in 0.9 % SODIUM CHLORIDE Mini-bag 100 ML IVPB (16:20)
[2025-08-20] MEDS: cefTRIAXone 2 GM in 0.9 % SODIUM CHLORIDE Mini-bag 100 ML IVPB (18:47)
--- NOTE | 2025-08-20 19:30 | PC.NURSE ---
End of Shift: VSS, afebrile. SpO2 maintained above 90% on 3L NC. Denies pain
--- NOTE | 2025-08-20 20:15 | PM.IMHP1 ---
Assessment and Plan Assessment and plan (1) Acute hypoxemic respiratory failure: Problem comment: - No known h/o lung disease - Suspect pneumonia as below, but may have underlying, previously undiagnosed ILD - Oxygen supplementation, treat pneumonia as below Status: Acute (2) Pneumonia: Problem comment: - Per history, symptoms are acute onset, URI last week - WBC, procalcitonin notably unremarkable. Check urine Strep, Legionella antigens. Differential includes inflammatory lung diseases - Cough is non productive, unable to provide sample for gram stain - Treat for pneumonia, reimage in one month. If no improvement or worsening, may need reimaging sooner or bronchoscopy and lavage. - Trial of albuterol nebs for cough Status: Suspected (3) Lymphadenopathy: Problem comment: - Seen on CT chest 08/20/25, will need repeat imaging as outpatient in 1 month. Status: Acute (4) Enlarged thyroid: Problem comment: - seen on Chest CT. Check TSH, outpatient thyroid US. Status: Acute (5) Pacemaker: Problem comment: 05/2023 Status: Chronic (6) CKD (chronic kidney disease): Problem comment: CKD stage 3, at baseline (1.1-1.2, according to [facility] records) Status: Chronic Hospitalist- H&P: HPI History of Present Illness Date Seen: 08/20/25 Chief complaint: Shortness of Breath, weakness Narrative: Lisa Norman is a 84 year old female with h/o pacemaker, nonischemic cardiomyopathy, hyperlipidemia, vertigo, and multiple environmental allergies who presented through the emergency department for shortness of breath and weakness. She started feeling ill last Wednesday, like something was coming on, but no specific symptoms and then felt very fatigued on , like it had finally hit. She describes a very severe dry cough that completely wore her out. It felt like it was coming from her diaphragm and would just, on out of the blue without any tickles in her throat. On Wednesday she felt somewhat feverish and chilled, but that resolved and she has had no more fevers or chills. She continues to have the cough, although it is getting better. It completely wears her out and makes her feel short of breath with even the slightest bit of activity if she starts coughing. She denies any focal numbness weakness or tingling. She denies chest pain. She also notes a poor appetite since last Wednesday. Review of Systems Status of ROS: Reports: 10 or more systems reviewed and unremarkable except as noted in History and below Medical Decision Making Medical Decision Making Code Status: DNR/DNI Has patient completed a Health Care Directive: Yes During This Stay, Who Would You Like To Make Decisions For You In The Event You Are Unable To Make Them For Yourself?: Cherry Daughter - [phone] [facility] Medical History (Updated 08/20/25 @ 22:55 by Matilde Cuellar MD) H/O echocardiogram ?Z92.89 - Personal history of other medical treatment (ICD-10) Pacemaker ?Z95.0 - Presence of cardiac pacemaker (ICD-10) CKD (chronic kidney disease) (06/15/25) ?N18.9 - Chronic kidney disease, unspecified (ICD-10) Non-ischemic cardiomyopathy (08/20/23) ?I42.8 - Other cardiomyopathies (ICD-10) Atrial tachycardia, paroxysmal (12/01/23) ?I47.19 - Other supraventricular tachycardia (ICD-10) Surgical History (Updated 08/20/25 @ 22:11 by Matilde Cuellar MD) H/O tubal ligation ?Z98.51 - Tubal ligation status (ICD-10) Social History (Updated 08/20/25 @ 22:18 by aMtilde Cuellar MD) Narrative: Lives in house with daughter, Cherry. Denies tobacco, alcohol or recreational drug use. What is your current living situation?: I presently have a place to live Problems where you live: no known problems Problems where you live details: n/a In the past 12 months, utilities in danger of being shut off: no In past 12 months, lack of transportation kept you from medical appts, meetings, work, or getting things needed for daily living: no In the past 12 mos, have been you worried that your food would run out before you had money to buy more?: never true In the past 12 mos, the food you bought just didn't last and you didn't have money to buy more?: never true Smoking Status: Never smoker Do you use any of these nicotine containing products: None Second hand tobacco smoke exposure: No How often do you have a drink containing alcohol: never How often do you have six or more drinks on one occasion: Never AUDIT-C Alcohol total score: 0 Non-prescribed substance use: denies use Caffeine: No How often does anyone, including family, friends and others, physically hurt you: never How often does anyone, including family, friends and others, insult or talk down to you: never How often does anyone, including family, friends and others, threaten you with harm: never How often does anyone, including family, friends and others, scream or curse at you: never service: No Meds Home Medications and Allergies Home Medications ?Medication ?Instructions ?Recorded ?Confirmed ?Type lisinopril 5 mg tablet 5 mg PO DAILY 11/15/23 08/20/25 History metoprolol succinate 25 mg 12.5 mg PO DAILY 11/15/23 08/20/25 History tablet,extended release 24 hr aspirin 81 mg tablet,delayed 81 mg PO DAILY 08/20/25 08/20/25 History release ([place] Aspirin) fexofenadine 180 mg tablet 180 mg PO DAILY 08/20/25 08/20/25 History ([facility] Allergy) ipratropium bromide 21 mcg (0.03 2 spray intranasal TID 08/20/25 08/20/25 History %) nasal spray meclizine 25 mg chewable tablet 25 mg PO TID PRN vertigo 08/20/25 08/20/25 History rosuvastatin 10 mg tablet 10 mg PO HS 08/20/25 08/20/25 History Allergies Allergy/AdvReac Type Severity Reaction Status Date / Time Sulfa (Sulfonamide Allergy Verified 08/20/25 14:58 Antibiotics) adhesives Allergy Uncoded 08/20/25 14:58 shell fish Allergy Uncoded 08/20/25 14:58 Exam Narrative: Exam Narrative: General: No acute distress. Frequent, dry cough. Awake alert oriented x3. Resting comfortably in bed. HEENT: Normocephalic atraumatic, pupils equally round and reactive to light and accommodation. Oropharynx clear. Mucous membranes are moist. No cervical lymphadenopathy, thyromegaly or carotid bruits. No JVD. Cardiovascular: Regular rate and rhythm. No murmurs, gallops, or rubs. Chest: No increased work of breathing. Rhonchi throughout. Abdomen: Bowel sounds present. Soft, nondistended, nontender. No hepatosplenomegaly or masses. Extremities: No edema, no cyanosis or clubbing. Skin: No jaundice, no pallor, no rashes on visible skin. Neuro: Grossly intact. No focal deficits. Const: Vital Signs, click to edit/add: Vital Signs - 24 hr 08/20/25 13:33 08/20/25 14:09 08/20/25 14:15 Temperature 97.5 F L Pulse Rate 67 Pulse Rate [Pulse Oximeter] Pulse Rate [Right Pulse Oximeter] 74 Respiratory Rate 18 30 H Blood Pressure Blood Pressure [Ri ght Arm] Blood Pressure [Ri ght Upper Arm] 94/53 L Pulse Oximetry 99 97 94 Oxygen Delivery Me thod Room Air Oxygen Flow Rate 08/20/25 14:15 08/20/25 14:15 08/20/25 14:30 Temperature Pulse Rate 66 67 Pulse Rate [Pulse Oximeter] Pulse Rate [Right Pulse Oximeter] Respiratory Rate 34 H 37 H Blood Pressure Blood Pressure [Ri ght Arm] Blood Pressure [Ri ght Upper Arm] Pulse Oximetry 94 99 95 Oxygen Delivery Me thod Nasal Cannula Oxygen Flow Rate 4 08/20/25 14:35 08/20/25 14:36 08/20/25 14:53 Temperature Pulse Rate 67 68 Pulse Rate [Pulse Oximeter] Pulse Rate [Right Pulse Oximeter] Respiratory Rate 24 29 H 22 Blood Pressure 128/84 Blood Pressure [Ri ght Arm] Blood Pressure [Ri ght Upper Arm] Pulse Oximetry 94 97 Oxygen Delivery Me thod Nasal Cannula Oxygen Flow Rate 3 08/20/25 15:00 08/20/25 15:02 08/20/25 15:02 Temperature Pulse Rate 65 66 66 Pulse Rate [Pulse Oximeter] Pulse Rate [Right Pulse Oximeter] Respiratory Rate 32 H 38 H 38 H Blood Pressure 123/57 L 123/57 L Blood Pressure [Ri ght Arm] Blood Pressure [Ri ght Upper Arm] Pulse Oximetry 99 100 100 Oxygen Delivery Me thod Oxygen Flow Rate 08/20/25 15:15 08/20/25 15:30 08/20/25 15:32 Temperature Pulse Rate 67 69 68 Pulse Rate [Pulse Oximeter] Pulse Rate [Right Pulse Oximeter] Respiratory Rate 37 H 35 H 30 H Blood Pressure 124/57 L Blood Pressure [Ri ght Arm] Blood Pressure [Ri ght Upper Arm] Pulse Oximetry 100 100 100 Oxygen Delivery Me thod Nasal Cannula Oxygen Flow Rate 3 08/20/25 15:45 08/20/25 16:00 08/20/25 16:02 Temperature Pulse Rate 65 67 65 Pulse Rate [Pulse Oximeter] Pulse Rate [Right Pulse Oximeter] Respiratory Rate 30 H 19 26 H Blood Pressure 120/53 L Blood Pressure [Ri ght Arm] Blood Pressure [Ri ght Upper Arm] Pulse Oximetry 97 95 93 Oxygen Delivery Me thod Nasal Cannula Oxygen Flow Rate 3 08/20/25 17:02 08/20/25 17:02 Temperature 97.9 F Pulse Rate Pulse Rate [Pulse Oximeter] 68 Pulse Rate [Right Pulse Oximeter] Respiratory Rate 20 20 Blood Pressure Blood Pressure [Ri ght Arm] 130/64 Blood Pressure [Ri ght Upper Arm] Pulse Oximetry 93 93 Oxygen Delivery Me thod Nasal Cannula Nasal Cannula Oxygen Flow Rate 3 3 Hospitalist - H&P: Result Labs Labs: Short CBC 08/20/25 Range/Units 13:52 WBC 6.08 (4.50-11.00) K/uL Hgb 11.7 L (12.0-16.0) gm/dL Hct 35.9 (33.0-51.0) % Plt Count 120 L (140-440) K/uL BMP 08/20/25 13:52 Sodium 133 L Potassium 4.1 Chloride 100 Carbon Dioxide 27 BUN 26 Creatinine 1.1 Glucose 130 H Calcium 8.5 Cardiac Enzymes 08/20/25 Range/Units 13:52 Troponin I 0.02 (0.01-0.04) ng/mL Liver Function 08/20/25 Range/Units 13:52 Total Bilirubin 1.0 (0.1-1.5) mg/dL AST 40 H (12-35) U/L ALT 20 (4-35) U/L Alkaline Phosphatase 83 (40-150) U/L Albumin 3.9 (3.3-5.0) g/dL EKG: Sinus rhythm with complete heart block and ventricular paced rhythm, 65 beats per minute. Ordering Physician: Anastasia Centeno M.D. Date of Service: 08/20/25 Procedure(s): CT angio chest PE protocol Accession Number(s): [id number] cc: Anastasia Centeno M.D.; Detert,Jenna L D.O.~ For Patients: As a result of the 21st Century Cures Act, medical imaging exams and procedure reports are released immediately into your electronic medical record. You may view this report before your referring provider. If you have questions, please contact your health care provider. INDICATION: Pulmonary embolism suspected, high probability. TECHNIQUE: CT chest PE was acquired with 95 cc Omnipaque 350 IV contrast. Coronal and MIP reconstructions were performed. COMPARISON: None. FINDINGS: Evaluation for pulmonary embolism is limited by motion. No pulmonary embolism is seen. The aorta is unopacified. Nonaneurysmal. Lower lobe traction bronchiectasis is seen. There is extensive lower lobe predominant patchy ground-glass which is more peripheral within the upper lung alba. There is some peripheral reticulation. There may be early lower lobe honeycombing with no definitive honeycombing otherwise seen. No significant pleural effusion. The thyroid is prominent with likely nodularity. Follow-up thyroid ultrasound is recommended. Prominent precarinal lymph nodes noted. Recommend close attention on follow-up. Prominent left hilar lymph node is also noted measuring approximate 12 millimeters (series 4, image 95). Cardiomegaly is present. No significant effusion. Left pacemaker is noted. Images of the upper abdomen are unremarkable. No fractures. IMPRESSION: 1. Extensive lower lobe predominant patchy ground-glass with traction bronchiectasis. Differential includes diffuse lung injury. Interstitial lung disease, and combination of interstitial lung disease and superimposed pneumonia. Recommend correlation with a patient`s clinical history. Short-term high-resolution chest CT is recommended in 1 month. 2. No definite pulmonary embolism is seen. 3. Indeterminate mediastinal/hilar lymphadenopathy. Recommend close attention on follow-up. 4. Enlarged thyroid. Recommend correlation with routine thyroid ultrasound. Please note that all CT scans at this facility use dose modulation, iterative reconstruction, and/or weight-based dosing when appropriate to reduce radiation dose to as low as reasonably achievable. Dictated by Jonathan Batres MD @ 08/20/2025 3:19:09 PM (Electronically Signed)
[2025-08-20] MEDS: SODIUM CHLORIDE 0.9 % (FLUSH) 10 ML SYRINGE 5 ML IVF (20:52)
[2025-08-20] MEDS: ROSUVASTATIN CALCIUM 10 MG TABLET PO (23:00)
[2025-08-21] VITALS (12 sets, daily range): BP systolic 91–121; BP diastolic 42–75; PULSE 65–69; RESP 18–30; TEMP 36.6–37; O2SAT 90–98
[2025-08-21] MEDS: ALBUTEROL SULFATE 2.5 MG/3 ML VIAL.NEB NEB ×2 (05:37→21:35)
[2025-08-21 06:23] LABS: Hematocrit* 32.1 % (33.0-51.0); Hemoglobin* 10.5 gm/dL (12.0-16.0); Immature Granulocytes Abs Auto 0.03 K/uL (0.00-0.30); Immature Granulocytes Pct Auto 0.6 %; Lymphocytes Absolute Auto 1.00 K/uL (0.90-2.90); Mean Corpuscular HGB Conc 33 gm/dL (32-36); Mean Corpuscular Hemoglobin 30 pg (26-34); Mean Corpuscular Volume 91 fL (80-100); RDW Coefficient of Variation % 14.2 % (11.5-15.5); Red Blood Count* 3.53 m/uL (4.00-5.20); White Blood Count* 5.31 K/uL (4.50-11.00)
[2025-08-21 06:50] LABS: Slide Review Reflex No
[2025-08-21 06:55] LABS: Albumin* 3.2 g/dL (3.3-5.0); Chloride* 104 mmol/L (96-114); Potassium* 3.9 mmol/L (3.6-5.1); Sodium* 133 mmol/L (135-149)
[2025-08-21 06:57] LABS: Blood Urea Nitrogen* 26 mg/dL (7-30); Creatinine* 0.9 mg/dL (0.5-1.5); Est. Creatinine Clearance* 42.25; Estimated Glomerular Filt Rate 63 ml/min
[2025-08-21 06:58] LABS: Alanine Aminotransferase* 17 U/L (4-35); Alkaline Phosphatase* 74 U/L (40-150); Anion Gap 5 mEq/L (7-15); Aspartate Amino Transferase* 36 U/L (12-35); Bilirubin Total* 0.5 mg/dL (0.1-1.5); Calcium* 8.2 mg/dL (8.4-10.6); Carbon Dioxide* 24 mmol/L (20-32); Glucose* 114 mg/dL (60-115); Total Protein* 5.7 g/dL (6.0-8.3)
[2025-08-21 07:15] LABS: Procalcitonin* 0.18 ng/mL (<0.50)
[2025-08-21 07:34] LABS: S pneumo Ag Urine S. pneumo Negative (Negative)
--- NOTE | 2025-08-21 07:51 | PC.NURSE ---
End of shift Note 256 Patient was very pleasant and cooperative throughout shift. Oxymask 3L. Oxygen upper 80's while coughing. SBA. Afebrile. A&Ox4. Uses call light appropriately. Call light within reach.
[2025-08-21 07:53] LABS: TSH With Reflex to FT4* 1.570 uIU/mL (0.270-4.200)
[2025-08-21] MEDS: DOXYCYCLINE HYCLATE 100 MG PO ×2 (08:49→21:09)
[2025-08-21] MEDS: FEXOFENADINE 180 MG TABLET PO (08:49)
[2025-08-21] MEDS: METOPROLOL SUCCINATE (XL) 25 MG TAB 12.5 MG PO (08:49)
[2025-08-21] MEDS: SODIUM CHLORIDE 0.9 % (FLUSH) 10 ML SYRINGE 5 ML IVF ×2 (08:50→21:09)
[2025-08-21] MEDS: ASPIRIN 81 MG TABLET EC PO (08:50)
--- NOTE | 2025-08-21 11:00 | RESP.RT ---
Patient sitting up in bed, on NC 3 Lpm, SaO2 91%, breathing regular/easy shallow. BBS with Both lower lobes diminished with coarse crackles, that clear some what with good forceful, productive cough, thick, creme, woodard, green tinged secretions. PEP with Aerobika. Patient had good exhalation, with good chest shake, promoting forceful productive cough. Upper lobes with fine crackles, far air movement.
--- NOTE | 2025-08-21 12:00 | PM.IMPN1 ---
Assessment and Plan Assessment and plan (1) Acute hypoxemic respiratory failure: Problem comment: - No known h/o lung disease - Suspect pneumonia as below, but may have underlying, previously undiagnosed ILD - Oxygen supplementation, treat pneumonia as below Status: Acute (2) Pneumonia: Problem comment: - Per history, symptoms are acute onset, URI last week - WBC, procalcitonin notably unremarkable. Check urine Strep, Legionella antigens. Differential includes inflammatory lung diseases 08/21 - changed rocephin/doxy to zosyn/doxy. added IV steroids, nebs. Status: Suspected (3) Lymphadenopathy: Problem comment: - Seen on CT chest 08/20/25, will need repeat imaging as outpatient in 1 month. Status: Acute (4) Enlarged thyroid: Problem comment: - seen on Chest CT. Check TSH, outpatient thyroid US. Status: Acute (5) Pacemaker: Problem comment: 05/2023 Status: Chronic (6) CKD (chronic kidney disease): Problem comment: CKD stage 3, at baseline (1.1-1.2, according to [facility] records) Status: Chronic (7) Hypotension: Problem comment: -MAP 61 -fluid bolus -close monitoring - may need ICU status -stat lactate, ABG, INR, Bilirubin - to assess for sepsis/shock Status: Acute Subjective Date Seen: 08/21/25 Interval history: Daily Progress Note - Hospital Medicine #: 2, admitted to the floor about 9:00 p.m. last night CC: Weakness, hypoxic respiratory failure 24 HOUR UPDATE: Overnight remained on 3 L. with any deep inhalation she is coughing. Any activity seems to cause a desaturation and a somewhat prolonged recovery as noted by OT today. Notable Labs, Micro, Rads, Interventions: Blood pressures were initially just, soft but they have, drifted down this morning to 94/42, 102/52 and 91/46. Pulse is still in the 60s. Her respiratory rate is moderately elevated 24-30. Her pulse ox low 90s on 3 L. She weighs 64.6 kilos White blood cell count is not elevated. Hemoglobin is 10.5. Platelet count is 118., thrombocytopenia is not new. VBG was normal. Mild hyponatremia, kidney function has improved and is now normal. Blood glucose 114. Troponin undetectable. CRP uptrending 7.1-12.8 Procalcitonin is not elevated. Urine antigen for Legionella and strep pneumo are negative. CTA on admission 1. Extensive lower lobe predominant patchy ground-glass with traction bronchiectasis. Differential includes diffuse lung injury. Interstitial lung disease, and combination of interstitial lung disease and superimposed pneumonia. Recommend correlation with a patient`s clinical history. Short-term high-resolution chest CT is recommended in 1 month. 2. No definite pulmonary embolism is seen. 3. Indeterminate mediastinal/hilar lymphadenopathy. Recommend close attention on follow-up. 1 blood culture is pending. EKG shows known complete heart block with ventricular pacing. 4. Enlarged thyroid. Recommend correlation with routine thyroid ultrasound. Objective: Vitals: see above Lungs: Clear. Cardiac: S1S2. Disposition/Potential discharge - Today I spent 50 minutes seeing the patient, reviewing [facility] and EPIC notes/diagnostics, discussing the care plan with our care time that includes social work, PT/OT, pharmacy, RT, fpc and documenting my impressions and plan in the medical record. Exam Const: Vital Signs, click to edit/add: Vital Signs - 24 hr 08/20/25 13:33 08/20/25 14:09 08/20/25 14:15 Temperature 97.5 F L Pulse Rate 67 Pulse Rate [Pulse Oximeter] Pulse Rate [Right Pulse Oximeter] 74 Respiratory Rate 18 30 H Blood Pressure Blood Pressure [Le ft Arm] Blood Pressure [Ri ght Arm] Blood Pressure [Ri ght Upper Arm] 94/53 L Pulse Oximetry 99 97 94 Oxygen Delivery Me thod Room Air Oxygen Flow Rate 08/20/25 14:15 08/20/25 14:15 08/20/25 14:30 Temperature Pulse Rate 66 67 Pulse Rate [Pulse Oximeter] Pulse Rate [Right Pulse Oximeter] Respiratory Rate 34 H 37 H Blood Pressure Blood Pressure [Le ft Arm] Blood Pressure [Ri ght Arm] Blood Pressure [Ri ght Upper Arm] Pulse Oximetry 94 99 95 Oxygen Delivery Me thod Nasal Cannula Oxygen Flow Rate 4 08/20/25 14:35 08/20/25 14:36 08/20/25 14:53 Temperature Pulse Rate 67 68 Pulse Rate [Pulse Oximeter] Pulse Rate [Right Pulse Oximeter] Respiratory Rate 24 29 H 22 Blood Pressure 128/84 Blood Pressure [Le ft Arm] Blood Pressure [Ri ght Arm] Blood Pressure [Ri ght Upper Arm] Pulse Oximetry 94 97 Oxygen Delivery Me thod Nasal Cannula Oxygen Flow Rate 3 08/20/25 15:00 08/20/25 15:02 08/20/25 15:02 Temperature Pulse Rate 65 66 66 Pulse Rate [Pulse Oximeter] Pulse Rate [Right Pulse Oximeter] Respiratory Rate 32 H 38 H 38 H Blood Pressure 123/57 L 123/57 L Blood Pressure [Le ft Arm] Blood Pressure [Ri ght Arm] Blood Pressure [Ri ght Upper Arm] Pulse Oximetry 99 100 100 Oxygen Delivery Me thod Oxygen Flow Rate 08/20/25 15:15 08/20/25 15:30 08/20/25 15:32 Temperature Pulse Rate 67 69 68 Pulse Rate [Pulse Oximeter] Pulse Rate [Right Pulse Oximeter] Respiratory Rate 37 H 35 H 30 H Blood Pressure 124/57 L Blood Pressure [Le ft Arm] Blood Pressure [Ri ght Arm] Blood Pressure [Ri ght Upper Arm] Pulse Oximetry 100 100 100 Oxygen Delivery Me thod Nasal Cannula Oxygen Flow Rate 3 08/20/25 15:45 08/20/25 16:00 08/20/25 16:02 Temperature Pulse Rate 65 67 65 Pulse Rate [Pulse Oximeter] Pulse Rate [Right Pulse Oximeter] Respiratory Rate 30 H 19 26 H Blood Pressure 120/53 L Blood Pressure [Le ft Arm] Blood Pressure [Ri ght Arm] Blood Pressure [Ri ght Upper Arm] Pulse Oximetry 97 95 93 Oxygen Delivery Me thod Nasal Cannula Oxygen Flow Rate 3 08/20/25 17:02 08/20/25 17:02 08/20/25 19:00 Temperature 97.9 F 97.6 F Pulse Rate Pulse Rate [Pulse Oximeter] 68 67 Pulse Rate [Right Pulse Oximeter] Respiratory Rate 20 20 22 Blood Pressure Blood Pressure [Le ft Arm] Blood Pressure [Ri ght Arm] 130/64 110/49 L Blood Pressure [Ri ght Upper Arm] Pulse Oximetry 93 93 93 Oxygen Delivery Me thod Nasal Cannula Nasal Cannula Nasal Cannula Oxygen Flow Rate 3 3 3 08/20/25 22:42 08/20/25 22:45 08/20/25 22:46 Temperature 97.8 F Pulse Rate Pulse Rate [Pulse Oximeter] 65 67 Pulse Rate [Right Pulse Oximeter] Respiratory Rate 26 H 26 H 26 H Blood Pressure Blood Pressure [Le ft Arm] Blood Pressure [Ri ght Arm] 127/58 L Blood Pressure [Ri ght Upper Arm] Pulse Oximetry 90 90 Oxygen Delivery Me thod OxyMask OxyMask Oxygen Flow Rate 3 3 08/20/25 23:00 08/21/25 03:00 08/21/25 07:34 Temperature 98.3 F 98 F Pulse Rate 67 Pulse Rate [Pulse Oximeter] 68 66 Pulse Rate [Right Pulse Oximeter] Respiratory Rate 20 30 H Blood Pressure Blood Pressure [Le ft Arm] 121/75 Blood Pressure [Ri ght Arm] 118/43 L Blood Pressure [Ri ght Upper Arm] Pulse Oximetry 93 92 Oxygen Delivery Me thod OxyMask OxyMask Oxygen Flow Rate 3 3 08/21/25 07:34 08/21/25 07:34 08/21/25 08:08 Temperature Pulse Rate Pulse Rate [Pulse Oximeter] 66 Pulse Rate [Right Pulse Oximeter] Respiratory Rate 30 H 30 H Blood Pressure Blood Pressure [Le ft Arm] Blood Pressure [Ri ght Arm] Blood Pressure [Ri ght Upper Arm] Pulse Oximetry 92 92 Oxygen Delivery Me thod OxyMask Nasal Cannula Oxygen Flow Rate 3 3 08/21/25 08:25 08/21/25 11:12 08/21/25 11:16 Temperature 98.6 F Pulse Rate 69 Pulse Rate [Pulse Oximeter] 66 67 Pulse Rate [Right Pulse Oximeter] Respiratory Rate 24 Blood Pressure Blood Pressure [Le ft Arm] 102/52 L Blood Pressure [Ri ght Arm] 94/42 L Blood Pressure [Ri ght Upper Arm] Pulse Oximetry 90 Oxygen Delivery Me thod Nasal Cannula Oxygen Flow Rate 3 08/21/25 11:18 Temperature Pulse Rate Pulse Rate [Pulse Oximeter] 66 Pulse Rate [Right Pulse Oximeter] Respiratory Rate Blood Pressure Blood Pressure [Le ft Arm] Blood Pressure [Ri ght Arm] 91/46 L Blood Pressure [Ri ght Upper Arm] Pulse Oximetry Oxygen Delivery Me thod Oxygen Flow Rate Labs Labs: Laboratory Results - last 24 hr 08/20/25 08/20/25 08/20/25 13:33 13:36 13:52 WBC 6.08 RBC 3.95 L Hgb 11.7 L Hct 35.9 MCV 91 MCH 30 MCHC 33 RDW Coeff of Agata 14.1 Plt Count 120 L Neut % (Auto) 83.8 H Lymph % (Auto) 7.1 L Dolores % (Auto) 8.4 Eos % (Auto) 0.2 Baso % (Auto) 0.3 Neut # (Auto) 5.10 Lymph # (Auto) 0.40 L Dolores # (Auto) 0.50 Eos # (Auto) 0.01 Baso # (Auto) 0.02 Abs Immat Gran (auto) 0.01 Imm/Tot Granulo (auto) 0.2 VBG pH 7.398 VBG pCO2 43 VBG pO2 < 30.1 VBG HCO3 27 Sodium 133 L Potassium 4.1 Chloride 100 Carbon Dioxide 27 Anion Gap 6 L BUN 26 Creatinine 1.1 Estimated Creat Clear Estimated GFR 50 Glucose 130 H Lactate 1.5 Calcium 8.5 Total Bilirubin 1.0 AST 40 H ALT 20 Alkaline Phosphatase 83 Troponin I 0.02 POC Troponin I High Sensi 16.7 H* C-Reactive Protein 7.1 H NT-Pro-B Natriuret Pep 1370 H Total Protein 6.7 Albumin 3.9 Procalcitonin 0.10 TSH Urine L. pneumophilia Ag Urine Strep pneumoniae Ag SARS-CoV-2 (PCR) Negative SARS-CoV-2 Influenza Type A (PCR) Negative PCR FLU A Influenza Type B (PCR) Negative PCR FLU B RSV (PCR) Negative PCR RSV Lab Acknowledgement 08/21/25 08/21/25 08/21/25 05:48 06:50 08:13 WBC 5.31 RBC 3.53 L Hgb 10.5 L Hct 32.1 L MCV 91 MCH 30 MCHC 33 RDW Coeff of Agata 14.2 Plt Count 118 L Neut % (Auto) 67.8 Lymph % (Auto) 18.8 L Dolores % (Auto) 11.1 H Eos % (Auto) 1.3 Baso % (Auto) 0.4 Neut # (Auto) 3.60 Lymph # (Auto) 1.00 Dolores # (Auto) 0.60 Eos # (Auto) 0.07 Baso # (Auto) 0.02 Abs Immat Gran (auto) 0.03 Imm/Tot Granulo (auto) 0.6 VBG pH VBG pCO2 VBG pO2 VBG HCO3 Sodium 133 L Potassium 3.9 Chloride 104 Carbon Dioxide 24 Anion Gap 5 L BUN 26 Creatinine 0.9 Estimated Creat Clear 42.25 Estimated GFR 63 Glucose 114 Lactate Calcium 8.2 L Total Bilirubin 0.5 AST 36 H ALT 17 Alkaline Phosphatase 74 Troponin I 0.02 POC Troponin I High Sensi C-Reactive Protein 12.8 H NT-Pro-B Natriuret Pep Total Protein 5.7 L Albumin 3.2 L Procalcitonin 0.18 TSH 1.570 Urine L. pneumophilia Ag L. pneumo Negative Urine Strep pneumoniae Ag S. pneumo Negative SARS-CoV-2 (PCR) Influenza Type A (PCR) Influenza Type B (PCR) RSV (PCR) Lab Acknowledgement Test Added
[2025-08-21] MEDS: METHYLPREDNISOLONE SOD SUCC 62.5 MG/ML (125) 125 MG IVP ×2 (12:27→18:12)
[2025-08-21] MEDS: PIPERACILLIN/TAZOBACTAM 3.375 GM in 0.9 % SODIUM CHLORIDE Mini-bag 100 ML IVPB ×2 (12:36→18:12)
[2025-08-21 12:39] LABS: ABG PCO2 35 mmHG (35-45); HCO3 ABG 25 mmol/L (21-28); Lactate* 0.9 mmol/L (0.5-1.9); Oxygen Saturation ABG 97 % (92-100); PO2 ABG 74.7 mmHG (80-105); TCO2 ABG 23 mmol/l (21-30)
[2025-08-21] MEDS: 0.9 % SODIUM CHLORIDE 500 ML 500 ML IV (12:53)
[2025-08-21 13:09] LABS: Bilirubin Total* 0.7 mg/dL (0.1-1.5)
[2025-08-21 13:10] LABS: INR 1.26 (0.91-1.10); Prothrombin Time 16.7 Seconds
--- NOTE | 2025-08-21 15:16 | PC.NURSE ---
End of Shift ([id number]): Patient pleasant and cooperative. Patient is currently vitally stable, was hypotensive at one point, was aware, 500 ml bolus given and now IV running NS at 150. Patient lungs course, BS WNL. Patient is on 3 L NC with sats in the 90s. When patient ambulates to BR sats decrease to the low 80s, and it takes about 5 min or more for her to recover, oxygen has been turned to 4 L for a few minutes as she recovers. Respirations have been at most 30. Patient denies pain. Patient is SBA with ambulation. Patient has taken in coffee and about 25% of oatmeal for breakfast, otherwise patient does not have much of an appetite. Patient was up in chair for breakfast otherwise she rests in bed. Tele= HB. Patient urinating, No BM this shift.
[2025-08-21] MEDS: IPRAT-ALBUT 0.5-2.5 MG/3 ML NEB 1 NEB IH ×2 (20:15→22:05)
[2025-08-21] MEDS: ROSUVASTATIN CALCIUM 10 MG TABLET PO (21:09)
[2025-08-22] VITALS (18 sets, daily range): BP systolic 86–120; BP diastolic 45–91; PULSE 64–70; RESP 16–20; TEMP 36.3–36.9; O2SAT 85–92
[2025-08-22] MEDS: FUROSEMIDE 10 MG/ML inj 20 MG IVP (00:46)
[2025-08-22] MEDS: METHYLPREDNISOLONE SOD SUCC 62.5 MG/ML (125) 125 MG IVP (00:46)
[2025-08-22] MEDS: PIPERACILLIN/TAZOBACTAM 3.375 GM in 0.9 % SODIUM CHLORIDE Mini-bag 100 ML IVPB ×2 (00:47→06:32)
[2025-08-22] MEDS: ALBUTEROL SULFATE 2.5 MG/3 ML VIAL.NEB NEB (03:52)
[2025-08-22 06:45] LABS: HCO3 VBG 24 mmol/L (21-28); PCO2 VBG 43 mmHG (40-50); PO2 VBG < 30.1 mmHG (25-47); pH VBG 7.361 (7.32-7.43)
[2025-08-22 07:17] LABS: Albumin* 3.2 g/dL (3.3-5.0); Chloride* 105 mmol/L (96-114); Sodium* 135 mmol/L (135-149)
[2025-08-22 07:18] LABS: Potassium* 4.2 mmol/L (3.6-5.1)
[2025-08-22 07:20] LABS: Blood Urea Nitrogen* 32 mg/dL (7-30); Creatinine* 1.1 mg/dL (0.5-1.5); Est. Creatinine Clearance* 38.01; Estimated Glomerular Filt Rate 50 ml/min
[2025-08-22 07:21] LABS: Alanine Aminotransferase* 20 U/L (4-35); Alkaline Phosphatase* 73 U/L (40-150); Anion Gap 6 mEq/L (7-15); Aspartate Amino Transferase* 39 U/L (12-35); Bilirubin Total* 0.7 mg/dL (0.1-1.5); Calcium* 8.2 mg/dL (8.4-10.6); Carbon Dioxide* 24 mmol/L (20-32); Glucose* 235 mg/dL (60-115); Total Protein* 5.8 g/dL (6.0-8.3)
[2025-08-22 07:52] LABS: Hematocrit* 32.8 % (33.0-51.0); Hemoglobin* 10.4 gm/dL (12.0-16.0); Immature Granulocytes Pct Auto 0.3 %; Mean Corpuscular HGB Conc 32 gm/dL (32-36); Mean Corpuscular Hemoglobin 29 pg (26-34); Mean Corpuscular Volume 93 fL (80-100); RDW Coefficient of Variation % 13.9 % (11.5-15.5); Red Blood Count* 3.54 m/uL (4.00-5.20); White Blood Count* 3.63 K/uL (4.50-11.00)
[2025-08-22 07:57] LABS: Immature Granulocytes Abs Auto 0.00 K/uL (0.00-0.30); Lymphocytes Absolute Auto 0.40 K/uL (0.90-2.90); Slide Review Reflex No
--- NOTE | 2025-08-22 08:09 | PC.NURSE ---
Pt alert and oriented. Pt O2 sats dipped to the high 70s after ambulating, notified (Polo). Nebs provided and O2 turned up to 5L NC, then transferred to oxymask which helped pt recover faster. When at rest pt sated around 88-low 90s on 4L o2. BP, 90s/50s, notified (Polo), rechecked at 120/58. Denied pain. Utilized bedside commode. Tele AV paced. Pt in bed, appears to be resting, call light within reach.
[2025-08-22] MEDS: DOXYCYCLINE HYCLATE 100 MG PO ×2 (09:46→21:05)
[2025-08-22] MEDS: SODIUM CHLORIDE 0.9 % (FLUSH) 10 ML SYRINGE 5 ML IVF ×2 (09:46→21:06)
[2025-08-22] MEDS: FEXOFENADINE 180 MG TABLET PO (09:46)
[2025-08-22] MEDS: ASPIRIN 81 MG TABLET EC PO (09:46)
--- NOTE | 2025-08-22 11:06 | P.IMPN_ITS ---
Assessment and Plan Assessment and plan (1) Acute hypoxemic respiratory failure: Problem comment: - No known h/o lung disease - Suspect pneumonia as below, but additionally appears to have previously undiagnosed ILD - Oxygen supplementation, treat pneumonia as below Status: Acute (2) Pneumonia: Problem comment: - Per history, symptoms are acute onset, URI last week - WBC, procalcitonin notably unremarkable. Check urine Strep, Legionella antigens. Differential includes inflammatory lung diseases 08/21 - changed rocephin/doxy to zosyn/doxy. added IV steroids, nebs. 08/22 - Added Aerobika use min of 4 times daily Status: Suspected (3) Lymphadenopathy: Problem comment: - Seen on CT chest 08/20/25, will need repeat imaging as outpatient in 1 month. Status: Acute (4) Enlarged thyroid: Problem comment: - seen on Chest CT. Check TSH, outpatient thyroid US. Status: Acute (5) Pacemaker: Problem comment: 05/2023 Status: Chronic (6) CKD (chronic kidney disease): Problem comment: CKD stage 3, at baseline (1.1-1.2, according to [facility] records) Status: Chronic (7) Hypotension: Problem comment: -MAP 61 -fluid bolus -close monitoring - may need ICU status -stat lactate, ABG, INR, Bilirubin - to assess for sepsis/shock 08/22 - stable. Continue to monitor and treat Status: Acute (8) Interstitial lung disease: Problem comment: - first noted on CXR and CT scan of lungs 08/20 and 08/21/25 - O2 requiring - would benefit from outpatient pulmonary consultation Status: Acute (9) Need for discharge planning: Problem comment: - Consider discharge disposition plans, including TCU services Status: Acute Plan 1. Reviewed my impression, plans, recommendations with the patient 2. Answered her questions to her satisfaction 3. Patient agreeable with above stated plans and recommendations Total Time Spent Total Time Spent: 40 minutes Subjective Date Seen: 08/22/25 Interval history: Admission history of present illness: ?84 year old female with h/o pacemaker, nonischemic cardiomyopathy, hyperlipidemia, vertigo, and multiple environmental allergies who presented through the emergency department for shortness of breath and weakness. She started feeling ill last Wednesday, like something was coming on, but no specific symptoms and then felt very fatigued on , like it had finally hit. She describes a very severe dry cough that completely wore her out. It felt like it was coming from her diaphragm and would just, on out of the blue without any tickles in her throat. On Wednesday she felt somewhat feverish and chilled, but that resolved and she has had no more fevers or chills. She continues to have the cough, although it is getting better. It completely wears her out and makes her feel short of breath with even the slightest bit of activity if she starts coughing. She denies any focal numbness weakness or tingling. She denies chest pain. She also notes a poor appetite since last Wednesday.? Hospital day 3, 08/22/2025: Indicates her dyspnea is slightly improved. Weakness is starting to improve. Still not able to transfer from supine to sitting and ambulate even 15 ft from edge of bed to bathroom due to weakness and dyspnea with exertion. Requiring bedside commode still. Continues to require oxygen supplementation at 4 liter s/minute via nasal cannula continuously to maintain resting oxygen saturation values greater than or equal to 87%. Denies chest heaviness, pressure, tightness, pain. Denies syncope or near-syncope at this time. Does have a history of syncope or near-syncope in the past. In hindsight she indicates she has had increasing dyspnea with exertion worsening steadily since 2024. Exam Narrative: Exam Narrative: I examined the patient in her hospital room. 4 liters/minute via nasal cannula contin uously with respiratory rate of 16 and oxygen saturation values of 90%. With conversation her respiratory rate increases to 18 and her oxygen saturations at rest dropped down to 87%. On auscultation of her lungs she does have crackles more so anteriorly than posteriorly, chronic sounding. No wheezing. Rhonchi clears with coughing. Decreased chest wall movement with deep breathing. Heart tones are distant but with regular rhythm and normal S1-S2 without obvious murmur, gallop, rub. PMI is not laterally displaced. Abdomen with active bowel sounds, soft, nontender. Extremities without edema. No focal motor neurologic deficits. Const: Vital Signs, click to edit/add: Vital Signs - 24 hr 08/21/25 11:12 08/21/25 11:16 08/21/25 11:18 Temperature 37.0 C Pulse Rate Pulse Rate [Pulse Oximeter] 66 67 66 Respiratory Rate 24 Blood Pressure [Le ft Arm] 102/52 L Blood Pressure [Ri ght Arm] 94/42 L 91/46 L Pulse Oximetry 90 Oxygen Delivery Me thod Nasal Cannula Oxygen Flow Rate 3 Fraction of Inspir ed Oxygen 08/21/25 11:52 08/21/25 13:00 08/21/25 15:00 Temperature 36.6 C Pulse Rate 65 Pulse Rate [Pulse Oximeter] 65 Respiratory Rate 30 H Blood Pressure [Le ft Arm] 121/59 L Blood Pressure [Ri ght Arm] Pulse Oximetry 98 Oxygen Delivery Me thod Nasal Cannula Nasal Cannula Oxygen Flow Rate 3 Fraction of Inspir ed Oxygen 3 08/21/25 15:00 08/21/25 15:00 08/21/25 15:00 Temperature 36.7 C Pulse Rate Pulse Rate [Pulse Oximeter] 67 67 Respiratory Rate 24 24 24 Blood Pressure [Le ft Arm] Blood Pressure [Ri ght Arm] 113/48 L Pulse Oximetry 91 91 Oxygen Delivery Me thod Room Air Nasal Cannula Oxygen Flow Rate 3 Fraction of Inspir ed Oxygen 08/21/25 19:35 08/21/25 23:00 08/21/25 23:00 Temperature 36.6 C Pulse Rate 65 Pulse Rate [Pulse Oximeter] 69 Respiratory Rate 20 Blood Pressure [Le ft Arm] 95/54 L Blood Pressure [Ri ght Arm] Pulse Oximetry 90 91 Oxygen Delivery Me thod Nasal Cannula Nasal Cannula Oxygen Flow Rate 3 4 Fraction of Inspir ed Oxygen 08/21/25 23:00 08/21/25 23:44 08/22/25 03:39 Temperature 36.8 C 36.7 C Pulse Rate Pulse Rate [Pulse Oximeter] 68 68 65 Respiratory Rate 18 18 18 Blood Pressure [Le ft Arm] 106/58 L 99/48 L Blood Pressure [Ri ght Arm] Pulse Oximetry 93 91 Oxygen Delivery Me thod Room Air Nasal Cannula Oxygen Flow Rate 4 Fraction of Inspir ed Oxygen 08/22/25 04:10 08/22/25 08:15 08/22/25 08:22 Temperature 36.3 C L Pulse Rate Pulse Rate [Pulse Oximeter] 64 Respiratory Rate 18 Blood Pressure [Le ft Arm] 120/58 L 86/58 L 102/54 L Blood Pressure [Ri ght Arm] Pulse Oximetry 88 87 L Oxygen Delivery Me thod Nasal Cannula Nasal Cannula Oxygen Flow Rate 5 4 Fraction of Inspir ed Oxygen 08/22/25 09:15 08/22/25 09:15 08/22/25 09:40 Temperature Pulse Rate Pulse Rate [Pulse Oximeter] 70 Respiratory Rate 18 18 Blood Pressure [Le ft Arm] Blood Pressure [Ri ght Arm] 116/50 L 96/53 L Pulse Oximetry 91 91 85 L Oxygen Delivery Me thod Nasal Cannula Nasal Cannula Nasal Cannula Oxygen Flow Rate 4 4 4 Fraction of Inspir ed Oxygen 08/22/25 09:56 08/22/25 10:15 08/22/25 10:38 Temperature Pulse Rate Pulse Rate [Pulse Oximeter] Respiratory Rate Blood Pressure [Le ft Arm] Blood Pressure [Ri ght Arm] 115/91 H 116/67 120/58 L Pulse Oximetry Oxygen Delivery Me thod Oxygen Flow Rate Fraction of Inspir ed Oxygen 08/22/25 10:45 Temperature Pulse Rate Pulse Rate [Pulse Oximeter] Respiratory Rate Blood Pressure [Le ft Arm] Blood Pressure [Ri ght Arm] 90/80 Pulse Oximetry Oxygen Delivery Me thod Oxygen Flow Rate Fraction of Inspir ed Oxygen Labs Labs: Laboratory Results - last 24 hr 08/21/25 08/21/25 08/22/25 12: 12:35 06:14 WBC 3.63 L RBC 3.54 L Hgb 10.4 L Hct 32.8 L MCV 93 MCH 29 MCHC 32 RDW Coeff of Agata 13.9 Plt Count 127 L Neut % (Auto) 86.4 H Lymph % (Auto) 10.5 L [place] % (Auto) 2.5 Eos % (Auto) 0.0 Baso % (Auto) 0.3 Neut # (Auto) 3.10 Lymph # (Auto) 0.40 L [place] # (Auto) 0.10 Eos # (Auto) 0.00 Baso # (Auto) 0.00 Abs Immat Gran (auto) 0.00 Imm/Tot Granulo (auto) 0.3 INR 1.26 H ABG pH 7.46 H ABG pCO2 35 ABG pO2 74.7 L ABG HCO3 25 ABG Total CO2 23 ABG O2 Saturation 97 ABG Base Excess 1.4 VBG pH 7.361 VBG pCO2 43 VBG pO2 < 30.1 VBG HCO3 24 Sodium 135 Potassium 4.2 Chloride 105 Carbon Dioxide 24 Anion Gap 6 L BUN 32 H Creatinine 1.1 Estimated Creat Clear 38.01 Estimated GFR 50 Glucose 235 H Lactate 0.9 Calcium 8.2 L Magnesium 2.0 Total Bilirubin 0.7 0.7 AST 39 H ALT 20 Alkaline Phosphatase 73 C-Reactive Protein 16.4 H Total Protein 5.8 L Albumin 3.2 L
--- NOTE | 2025-08-22 19:03 | PC.NURSE ---
The patient is pleasant and cooperative during cares. intermittent hypotension throughout the shift, although asymptomatic. NC for oxygen saturations, requires more for activity... the patient takes a while to recover saturations after activity. BM today. Dry intermittent cough which is more evident when the patient attempts to take a deep breathe. Call light within reach. Overflow incontinence at the patients baseline. Due to recovery time recommending the patient uses the bedside commode for BR. Stephanie PENG BSN
[2025-08-22] MEDS: IPRAT-ALBUT 0.5-2.5 MG/3 ML NEB 1 NEB IH ×2 (20:06→23:26)
[2025-08-22] MEDS: ROSUVASTATIN CALCIUM 10 MG TABLET PO (21:07)
[2025-08-23] VITALS (7 sets, daily range): BP systolic 99–126; BP diastolic 50–94; PULSE 63–72; RESP 18–20; TEMP 36.3–37; O2SAT 88–94
[2025-08-23] MEDS: ALBUTEROL SULFATE 2.5 MG/3 ML VIAL.NEB NEB (00:45)
[2025-08-23] MEDS: IPRAT-ALBUT 0.5-2.5 MG/3 ML NEB 1 NEB IH ×2 (05:33→21:49)
[2025-08-23 06:56] LABS: HCO3 VBG 25 mmol/L (21-28); PCO2 VBG 38 mmHG (40-50); PO2 VBG 53.5 mmHG (25-47); pH VBG 7.419 (7.32-7.43)
[2025-08-23 07:10] LABS: Hematocrit* 32.0 % (33.0-51.0); Hemoglobin* 10.3 gm/dL (12.0-16.0); Immature Granulocytes Abs Auto 0.04 K/uL (0.00-0.30); Immature Granulocytes Pct Auto 0.4 %; Mean Corpuscular HGB Conc 32 gm/dL (32-36); Mean Corpuscular Hemoglobin 30 pg (26-34); Mean Corpuscular Volume 93 fL (80-100); RDW Coefficient of Variation % 13.9 % (11.5-15.5); Red Blood Count* 3.45 m/uL (4.00-5.20); White Blood Count* 10.78 K/uL (4.50-11.00)
[2025-08-23 07:17] LABS: Lymphocytes Absolute Auto 0.60 K/uL (0.90-2.90); Slide Review Reflex No
[2025-08-23 07:21] LABS: Albumin* 3.1 g/dL (3.3-5.0); Chloride* 107 mmol/L (96-114)
[2025-08-23 07:22] LABS: Potassium* 3.8 mmol/L (3.6-5.1); Sodium* 135 mmol/L (135-149)
[2025-08-23 07:24] LABS: Alanine Aminotransferase* 23 U/L (4-35); Aspartate Amino Transferase* 48 U/L (12-35); Blood Urea Nitrogen* 43 mg/dL (7-30); Creatinine* 1.0 mg/dL (0.5-1.5); Est. Creatinine Clearance* 42.25; Estimated Glomerular Filt Rate 56 ml/min
[2025-08-23 07:25] LABS: Alkaline Phosphatase* 76 U/L (40-150); Anion Gap 4 mEq/L (7-15); Bilirubin Total* 0.5 mg/dL (0.1-1.5); Calcium* 8.6 mg/dL (8.4-10.6); Carbon Dioxide* 24 mmol/L (20-32); Glucose* 154 mg/dL (60-115); Total Protein* 5.6 g/dL (6.0-8.3)
--- NOTE | 2025-08-23 07:37 | PC.NURSE ---
Pt pleasant,?alert,?and oriented.?Pt has periods of confusion throughout shift. Easily reoriented.?O2 sats dipped into the low 80s, repositioned, provided?nebs?and increased o2 to 4L while in bed.?Promoted use of?areobika, pt able to?utilize?independently.?BPs?softer;?MAP remained above 65.?Pt denies light headedness.?Up with 1 a, tolerated well.?Pt in bed, appears to be resting, call light within reach.??
[2025-08-23] MEDS: FEXOFENADINE 180 MG TABLET PO (09:09)
[2025-08-23] MEDS: ASPIRIN 81 MG TABLET EC PO (09:09)
[2025-08-23] MEDS: DOXYCYCLINE HYCLATE 100 MG PO ×2 (09:09→21:05)
[2025-08-23] MEDS: SODIUM CHLORIDE 0.9 % (FLUSH) 10 ML SYRINGE 5 ML IVF ×2 (09:30→21:05)
--- NOTE | 2025-08-23 13:21 | P.IMPN_ITS ---
Assessment and Plan Assessment and plan (1) Acute hypoxemic respiratory failure: Problem comment: - No known h/o lung disease - Suspect pneumonia as below, but additionally appears to have previously undiagnosed ILD - Oxygen supplementation, treat pneumonia as below - may need oxygen supplementation at time of discharge from hospital. Will ask respiratory therapy to assess for home O2 needs when we have a safe discharge disposition plan. Status: Acute (2) Pneumonia: Problem comment: - Per history, symptoms are acute onset, URI last week - WBC, procalcitonin notably unremarkable. Check urine Strep, Legionella antigens. Differential includes inflammatory lung diseases 08/21 - changed rocephin/doxy to zosyn/doxy. added IV steroids, nebs. 08/22 - Added Aerobika use min of 4 times daily 08/13 - increase activities as tolerated Status: Suspected (3) Lymphadenopathy: Problem comment: - Seen on CT chest 08/20/25, will need repeat imaging as outpatient in 1 month. Status: Acute (4) Enlarged thyroid: Problem comment: - seen on Chest CT. Check TSH, outpatient thyroid US. Status: Acute (5) Pacemaker: Problem comment: 05/2023 Status: Chronic (6) CKD (chronic kidney disease): Problem comment: CKD stage 3, at baseline (1.1-1.2, according to [facility] records) Status: Chronic (7) Hypotension: Problem comment: -MAP 61 -fluid bolus -close monitoring - may need ICU status -stat lactate, ABG, INR, Bilirubin - to assess for sepsis/shock 08/22 - stable. Continue to monitor and treat Status: Acute (8) Interstitial lung disease: Problem comment: - first noted on CXR and CT scan of lungs 08/20 and 08/21/25 - O2 requiring - would benefit from outpatient pulmonary consultation Status: Acute (9) Need for discharge planning: Problem comment: - Consider discharge disposition plans, including TCU services - patient prefers TCU transfer at time of discharge rather than discharge from the hospital directly home, if at all possible Status: Acute Plan 1. Reviewed impression, plans, recommendations with patient 2. Answered her questions to her satisfaction 3. Patient agreeable with above stated plans and recommendations Total Time Spent Total Time Spent: 40 minutes Subjective Date Seen: 08/23/25 Interval history: Admission history of present illness: ?84 year old female with h/o pacemaker, nonischemic cardiomyopathy, hyperlipidemia, vertigo, and multiple environmental allergies who presented through the emergency department for shortness of breath and weakness. She started feeling ill last Wednesday, like something was coming on, but no specific symptoms and then felt very fatigued on , like it had finally hit. She describes a very severe dry cough that completely wore her out. It felt like it was coming from her diaphragm and would just, on out of the blue without any tickles in her throat. On Wednesday she felt somewhat feverish and c hilled, but that resolved and she has had no more fevers or chills. She continues to have the cough, although it is getting better. It completely wears her out and makes her feel short of breath with even the slightest bit of activity if she starts coughing. She denies any focal numbness weakness or tingling. She denies chest pain. She also notes a poor appetite since last Wednesday.? Hospital day 3, 08/22/2025: Indicates her dyspnea is slightly improved. Weakness is starting to improve. Still not able to transfer from supine to sitting and ambulate even 15 ft from edge of bed to bathroom due to weakness and dyspnea with exertion. Requiring bedside commode still. Continues to require oxygen supplementation at 4 liters/minute via nasal cannula continuously to maintain resting oxygen saturation values greater than or equal to 87%. Denies chest heaviness, pressure, tightness, pain. Denies syncope or near-syncope at this time. Does have a history of syncope or near-syncope in the past. In hindsight she indicates she has had increasing dyspnea with exertion worsening steadily since 2024. Hospital day 4, 08/23/2025: She indicates her mind feels a little clearer than yesterday. She is feeling a little stronger. She is making efforts to walk to and from the bathroom rather than use her bedside commode now. Does take a while for her to recover post ambulation to and from bathroom. Still requiring oxygen supplementation but at lower flow rates, 2.5 liters/minute via nasal cannula continuously verses 4-5 yesterday. Dry hacky cough still. Benefitting from use of Aerobika device. She is feeling more hopeful today than yesterday. She indicates her desired to be transferred to a transitional care unit now as opposed to back home with her daughter. She indicates she needs more time to recover sufficiently so that she can return home safely. Exam Narrative: Exam Narrative: I examine her in her room and she appears comfortable and in no acute distress. Friendly, articulate, cooperative. Alert and oriented x4. Less rhonchi today than yesterday. No wheezing when I examine her today. Fine, end inspiratory rales bibasilarly. Distant heart tones with regular rhythm. Extremities with trace edema. Independent with transfer, station, gait. Moves all 4 extremities. No tremor, asterixis, or ataxia. Const: Vital Signs, click to edit/add: Vital Signs - 24 hr 08/22/25 15:00 08/22/25 15:00 08/22/25 15:00 Temperature Pulse Rate Pulse Rate [Pulse Oximeter] 69 Respiratory Rate 18 20 Blood Pressure [Le ft Arm] Blood Pressure [Ri ght Arm] 115/55 L Pulse Oximetry 88 92 Oxygen Delivery Me thod Nasal Cannula Nasal Cannula Oxygen Flow Rate 3 Fraction of Inspir ed Oxygen 2 08/22/25 15:00 08/22/25 19:02 08/22/25 19:52 Temperature 36.6 C Pulse Rate 66 Pulse Rate [Pulse Oximeter] 67 Respiratory Rate 18 Blood Pressure [Le ft Arm] 106/56 L Blood Pressure [Ri ght Arm] Pulse Oximetry 88 90 Oxygen Delivery Me thod Nasal Cannula Room Air Oxygen Flow Rate 2.5 Fraction of Inspir ed Oxygen 2.5 08/22/25 23:00 08/22/25 23:00 08/22/25 23:00 Temperature Pulse Rate 68 Pulse Rate [Pulse Oximeter] 66 Respiratory Rate 20 Blood Pressure [Le ft Arm] Blood Pressure [Ri ght Arm] Pulse Oximetry 92 Oxygen Delivery Me thod Room Air Oxygen Flow Rate 4 Fraction of Inspir ed Oxygen 08/22/25 23:45 08/23/25 03:00 08/23/25 07:59 Temperature 36.9 C 36.8 C Pulse Rate Pulse Rate [Pulse Oximeter] 66 65 Respiratory Rate 20 20 18 Blood Pressure [Le ft Arm] 99/58 L Blood Pressure [Ri ght Arm] 104/49 L Pulse Oximetry 88 93 88 Oxygen Delivery Me thod Nasal Cannula Nasal Cannula Nasal Cannula Oxygen Flow Rate 5 4 3.5 Fraction of Inspir ed Oxygen 08/23/25 07:59 08/23/25 09:11 Temperature 36.3 C L Pulse Rate Pulse Rate [Pulse Oximeter] 69 Respiratory Rate 18 18 Blood Pressure [Le ft Arm] Blood Pressure [Ri ght Arm] 104/50 L Pulse Oximetry 88 89 Oxygen Delivery Me thod Nasal Cannula Nasal Cannula Oxygen Flow Rate 2.5 Fraction of Inspir ed Oxygen Labs Labs: Laboratory Results - last 24 hr 08/23/25 06:35 WBC 10.78 RBC 3.45 L Hgb 10.3 L Hct 32.0 L MCV 93 MCH 30 MCHC 32 RDW Coeff of Agata 13.9 Plt Count 135 L Neut % (Auto) 88.9 H Lymph % (Auto) 5.7 L [place] % (Auto) 5.0 Eos % (Auto) 0.0 Baso % (Auto) 0.0 Neut # (Auto) 9.60 H Lymph # (Auto) 0.60 L [place] # (Auto) 0.50 Eos # (Auto) 0.00 Baso # (Auto) 0.00 Abs Immat Gran (auto) 0.04 Imm/Tot Granulo (auto) 0.4 VBG pH 7.419 VBG pCO2 38 L VBG pO2 53.5 H VBG HCO3 25 Sodium 135 Potassium 3.8 Chloride 107 Carbon Dioxide 24 Anion Gap 4 L BUN 43 H Creatinine 1.0 Estimated Creat Clear 42.25 Estimated GFR 56 Glucose 154 H Calcium 8.6 Magnesium 2.2 Total Bilirubin 0.5 AST 48 H ALT 23 Alkaline Phosphatase 76 C-Reactive Protein 8.6 H Total Protein 5.6 L Albumin 3.1 L
--- NOTE | 2025-08-23 18:35 | PC.NURSE ---
The patient reports feeling somewhat better today. The patients need for oxygen at rest and with activity continues. The patient was unable to tolerate sitting at the edge of the bed today with therapy, her O2 saturations were in the mid 70's. The patient reported no dizziness during this time. Although prior, the patient had ambulated to the BR and was SOB and reported dizziness. Bedside commode for BR due to hypoxia with activity. Appetite is ok, PO fluid intake is poor. No reports of pain, call light within reach. Stephanie PENG BSN
[2025-08-23] MEDS: ROSUVASTATIN CALCIUM 10 MG TABLET PO (21:05)
[2025-08-24] MEDS: IPRAT-ALBUT 0.5-2.5 MG/3 ML NEB 1 NEB IH (02:25)
[2025-08-24] MEDS: MELATONIN 3 MG TABLET PO ×2 (02:54→21:28)
[2025-08-24 03:00] VITALS: BP 106/64; PULSE 68; RESP 20; O2SAT 93
--- NOTE | 2025-08-24 06:09 | PC.NURSE ---
Shift Note: Pt very ambitious to attempt ambulation to the BR to void overnight. [employer] discussed setting reachable goals and encouraged pt to attempt this earlier in the day when she has better reserves and energy. Pt agreed. She tolerated pivots to BSC well, stated she did not feel SOB/dizzy/lightheaded. SpO2 did however desaturate to low 80's with appropriate waveform during activity. Duo-neb given and pt rebounded within a few minutes. Linens changed and modified basin bath/shower cap shampoo done. Pt denies pain. Ongoing dry, unproductive cough with neb treatments and deep breathing. Pt c/o difficulty sleeping overnight, lots of beeping, banging, and yelling. PRN melatonin given as well as well earplugs, repositioning and eye mask. Pt appears to be resting comfortably with call light in reach.
[2025-08-24 07:00] VITALS: BP 119/58; PULSE 65; PULSE 67; RESP 20; TEMP 36.7; O2SAT 89
[2025-08-24 07:01] LABS: Hematocrit* 32.7 % (33.0-51.0); Hemoglobin* 10.2 gm/dL (12.0-16.0); Immature Granulocytes Abs Auto 0.01 K/uL (0.00-0.30); Immature Granulocytes Pct Auto 0.2 %; Mean Corpuscular HGB Conc 31 gm/dL (32-36); Mean Corpuscular Hemoglobin 30 pg (26-34); Mean Corpuscular Volume 95 fL (80-100); RDW Coefficient of Variation % 14.3 % (11.5-15.5); Red Blood Count* 3.43 m/uL (4.00-5.20); White Blood Count* 6.24 K/uL (4.50-11.00)
[2025-08-24 07:06] LABS: Lymphocytes Absolute Auto 0.60 K/uL (0.90-2.90); Slide Review Reflex No
[2025-08-24 07:10] LABS: HCO3 VBG 27 mmol/L (21-28); PCO2 VBG 41 mmHG (40-50); PO2 VBG 42.5 mmHG (25-47); pH VBG 7.419 (7.32-7.43)
[2025-08-24 07:33] LABS: Albumin* 3.0 g/dL (3.3-5.0); Chloride* 107 mmol/L (96-114); Potassium* 4.3 mmol/L (3.6-5.1); Sodium* 136 mmol/L (135-149)
[2025-08-24 07:35] LABS: Alanine Aminotransferase* 27 U/L (4-35); Aspartate Amino Transferase* 51 U/L (12-35); Blood Urea Nitrogen* 41 mg/dL (7-30); Creatinine* 1.0 mg/dL (0.5-1.5); Est. Creatinine Clearance* 42.25; Estimated Glomerular Filt Rate 56 ml/min
[2025-08-24 07:36] LABS: Alkaline Phosphatase* 74 U/L (40-150); Anion Gap 3 mEq/L (7-15); Bilirubin Total* 0.5 mg/dL (0.1-1.5); Calcium* 8.6 mg/dL (8.4-10.6); Carbon Dioxide* 26 mmol/L (20-32); Glucose* 119 mg/dL (60-115); Total Protein* 5.4 g/dL (6.0-8.3)
[2025-08-24] MEDS: DOXYCYCLINE HYCLATE 100 MG PO ×2 (09:19→21:29)
[2025-08-24] MEDS: SODIUM CHLORIDE 0.9 % (FLUSH) 10 ML SYRINGE 5 ML IVF (09:19)
[2025-08-24] MEDS: ASPIRIN 81 MG TABLET EC PO (09:19)
[2025-08-24] MEDS: FEXOFENADINE 180 MG TABLET PO (09:19)
[2025-08-24 12:32] VITALS: BP 106/66; PULSE 71; RESP 20; TEMP 36.1; O2SAT 88
--- NOTE | 2025-08-24 13:38 | RESP.RT ---
Patient was placed on Oxymizer for therapy and activity. Titrated oxygen to 6 lpm oxymizer and was able to tolerate and maintain during PT. Will wean as able.
[2025-08-24 15:00] VITALS: BP 132/69; PULSE 68; PULSE 70; RESP 22; TEMP 36.3; O2SAT 88
--- NOTE | 2025-08-24 15:50 | PM.IMPN1 ---
Assessment and Plan Assessment and plan (1) Acute hypoxemic respiratory failure: Problem comment: - No known h/o lung disease - Suspect pneumonia as below, but additionally appears to have previously undiagnosed ILD - Oxygen supplementation, treat pneumonia as below - may need oxygen supplementation at time of discharge from hospital. Will ask respiratory therapy to assess for home O2 needs when we have a safe discharge disposition plan. Status: Acute (2) Pneumonia: Problem comment: - Per history, symptoms are acute onset, URI last week - WBC, procalcitonin notably unremarkable. Check urine Strep, Legionella antigens. Differential includes inflammatory lung diseases 08/21 - changed rocephin/doxy to zosyn/doxy. added IV steroids, nebs. 08/22 - Added Aerobika use min of 4 times daily 08/23 - increase activities as tolerated 08/24 - will likely be able to switch from IV to oral antibiotics as early as tomorrow Status: Suspected (3) Lymphadenopathy: Problem comment: - Seen on CT chest 08/20/25, will need repeat imaging as outpatient in 1 month. Status: Acute (4) Enlarged thyroid: Problem comment: - seen on Chest CT. Check TSH, outpatient thyroid US. Status: Acute (5) Pacemaker: Problem comment: 05/2023 Status: Chronic (6) CKD (chronic kidney disease): Problem comment: CKD stage 3, at baseline (1.1-1.2, according to [facility] records) Status: Chronic (7) Hypotension: Problem comment: -MAP 61 -fluid bolus -close monitoring - may need ICU status -stat lactate, ABG, INR, Bilirubin - to assess for sepsis/shock 08/22 - stable. Continue to monitor and treat Status: Acute (8) Interstitial lung disease: Problem comment: - first noted on CXR and CT scan of lungs 08/20 and 08/21/25 - O2 requiring - would benefit from outpatient pulmonary consultation Status: Acute (9) Need for discharge planning: Problem comment: - Consider discharge disposition plans, including TCU services - patient prefers TCU transfer at time of discharge rather than discharge from the hospital directly home, if at all possible Status: Acute Plan 1. Reviewed impression, plans, recommendations with patient Which to answer questions are satisfaction 3. Patient agree with above stated plans and recommendations Total Time Spent Total Time Spent: 40 minutes Subjective Date Seen: 08/24/25 Interval history: Admission history of present illness: ?84 year old female with h/o pacemaker, nonischemic cardiomyopathy, hyperlipidemia, vertigo, and multiple environmental allergies who presented through the emergency department for shortness of breath and weakness. She started feeling ill last Wednesday, like something was coming on, but no specific symptoms and then felt very fatigued on , like it had finally hit. She describes a very severe dry cough that completely wore her out. It felt like it was coming from her diaphragm and would just, on out of the blue without any tickles in her throat. On Wednesday she felt somewhat feverish and chilled, but that resolved and she has had no more fevers or chills. She continues to have the cough, although it is getting better. It completely wears her out and makes her feel short of breath with even the slightest bit of activity if she starts coughing. She denies any focal numbness weakness or tingling. She denies chest pain. She also notes a poor appetite since last Wednesday.? Hospital day 3, 08/22/2025: Indicates her dyspnea is slightly improved. Weakness is starting to improve. Still not able to transfer from supine to sitting and ambulate even 15 ft from edge of bed to bathroom due to weakness and dyspnea with exertion. Requiring bedside commode still. Continues to require oxygen supplementation at 4 liters/minute via nasal cannula continuously to maintain resting oxygen saturation values greater than or equal to 87%. Denies chest heaviness, pressure, tightness, pain. Denies syncope or near-syncope at this time. Does have a history of syncope or near-syncope in the past. In hindsight she indicates she has had increasing dyspnea with exertion worsening steadily since 2024. Hospital day 4, 08/23/2025: She indicates her mind feels a little clearer than yesterday. She is feeling a little stronger. She is making efforts to walk to and from the bathroom rather than use her bedside commode now. Does take a while for her to recover post ambulation to and from bathroom. Still requiring oxygen supplementation but at lower flow rates, 2.5 liters/minute via nasal cannula continuously verses 4-5 yesterday. Dry hacky cough still. Benefitting from use of Aerobika device. She is feeling more hopeful today than yesterday. She indicates her desired to be transferred to a transitional care unit now as opposed to back home with her daughter. She indicates she needs more time to recover sufficiently so that she can return home safely. Hospital day 5, 08/24/2025: Did not sleep well. When she awoke she was confused was not quite sure where she was at. Was able to reorient in a relatively short period of time. Worked with respiratory therapy today to establish a safe for oxygen delivery system, establishing that she does well on the 6 L Oxymizer mask with activities. Continue to await placement options. Exam Narrative: Exam Narrative: Examine her in her hospital room. Cooperative and articulate. Vision and hearing are adequate. Alert and oriented x4. Scattered rhonchi with end inspiratory rales bibasilarly. No wheezing. Regular heart rate and rhythm. Abdomen benign. Moves all 4 extremities. Const: Vital Signs, click to edit/add: Vital Signs - 24 hr 08/23/25 19:00 08/23/25 23:00 08/23/25 23:00 Temperature 36.8 C 37.0 C Pulse Rate Pulse Rate [Pulse Oximeter] 68 68 Respiratory Rate 18 18 18 Blood Pressure [Le ft Arm] 126/94 H 108/57 L Pulse Oximetry 94 92 92 Oxygen Delivery Me thod Nasal Cannula Nasal Cannula Nasal Cannula Oxygen Flow Rate 3 3 3 Fraction of Inspir ed Oxygen 2.5 08/23/25 23:00 08/23/25 23:00 08/24/25 03:00 Temperature Pulse Rate 63 Pulse Rate [Pulse Oximeter] 68 68 Respiratory Rate 20 20 Blood Pressure [Le ft Arm] 106/64 Pulse Oximetry 93 Oxygen Delivery Me thod Nasal Cannula Oxygen Flow Rate 3 Fraction of Inspir ed Oxygen 2.5 08/24/25 07:00 08/24/25 07:00 08/24/25 07:00 Temperature 36.7 C Pulse Rate Pulse Rate [Pulse Oximeter] 67 67 Respiratory Rate 20 20 Blood Pressure [Le ft Arm] 119/58 L Pulse Oximetry 89 89 Oxygen Delivery Me thod Nasal Cannula Nasal Cannula Oxygen Flow Rate 3 3 Fraction of Inspir ed Oxygen 08/24/25 07:00 08/24/25 12:32 08/24/25 15:00 Temperature 36.1 C L Pulse Rate 65 Pulse Rate [Pulse Oximeter] 71 Respiratory Rate 20 Blood Pressure [Le ft Arm] 106/66 Pulse Oximetry 88 88 Oxygen Delivery Me thod Nasal Cannula Oxygen Flow Rate 3 3 Fraction of Inspir ed Oxygen 08/24/25 15:00 Temperature 36.3 C L Pulse Rate Pulse Rate [Pulse Oximeter] 70 Respiratory Rate 22 Blood Pressure [Le ft Arm] 132/69 Pulse Oximetry 88 Oxygen Delivery Me thod Nasal Cannula Oxygen Flow Rate 3 Fraction of Inspir ed Oxygen Labs Labs: Laboratory Results - last 24 hr 08/24/25 06:15 WBC 6.24 RBC 3.43 L Hgb 10.2 L Hct 32.7 L MCV 95 MCH 30 MCHC 31 L RDW Coeff of Agata 14.3 Plt Count 121 L Neut % (Auto) 82.5 H Lymph % (Auto) 9.9 L [place] % (Auto) 6.9 Eos % (Auto) 0.5 Baso % (Auto) 0.0 Neut # (Auto) 5.10 Lymph # (Auto) 0.60 L [place] # (Auto) 0.40 Eos # (Auto) 0.03 Baso # (Auto) 0.00 Abs Immat Gran (auto) 0.01 Imm/Tot Granulo (auto) 0.2 VBG pH 7.419 VBG pCO2 41 VBG pO2 42.5 VBG HCO3 27 Sodium 136 Potassium 4.3 Chloride 107 Carbon Dioxide 26 Anion Gap 3 L BUN 41 H Creatinine 1.0 Estimated Creat Clear 42.25 Estimated GFR 56 Glucose 119 H Calcium 8.6 Magnesium 2.1 Total Bilirubin 0.5 AST 51 H ALT 27 Alkaline Phosphatase 74 C-Reactive Protein 5.9 H Total Protein 5.4 L Albumin 3.0 L
[2025-08-24 19:00] VITALS: BP 121/63; PULSE 69; RESP 22; TEMP 36.9; O2SAT 88
--- NOTE | 2025-08-24 19:44 | PC.NURSE ---
End of Shift: Patient pleasant and cooperative. Afebrile. Denies pain. O2 sats greater than 87% on 1-3L NC or Oxymizer at rest, RT in to see pt. Up to BSC and bathroom with SBA, walker and gait belt. Tolerating regular diet with no nausea.
[2025-08-24] MEDS: ROSUVASTATIN CALCIUM 10 MG TABLET PO (21:29)
[2025-08-24] MEDS: ACETAMINOPHEN 325 MG TABLET 650 MG PO (21:29)
[2025-08-24 23:00] VITALS: BP 95/72; PULSE 68; RESP 22; TEMP 36.4; O2SAT 90; O2SAT 94
[2025-08-25] VITALS (7 sets, daily range): BP systolic 78–127; BP diastolic 54–96; PULSE 65–85; RESP 20; TEMP 36.1–36.8; O2SAT 91–98
--- NOTE | 2025-08-25 06:33 | PC.NURSE ---
Addendum entered by Ana M Judge RN 08/25/25 07:24: Pt Original Note: Shift Note: Pt friendly and cooperative, able to verbalize her needs. C/o of mild intercostal pain from coughing, PRN Tylenol given and pt verbalized relief. Moves well from bed to BSC with some desaturation to mid 80's during activity. She has required 2L/O2 via oxymizer at rest and 5-6L/O2 during activity to SpO2 at or near 90%. Spo2 monitor alarmed for a reading of 74% with a good waveform at 0630 this morning. [employer] discovered pt had removed her oxymizer independently to blow her nose. Oxymizer replaced and pt stated she did not feel SOB. Extended recovery time noted, nearly 10 minutes to return to 88%.
[2025-08-25 07:09] LABS: HCO3 VBG 28 mmol/L (21-28); Hematocrit* 32.7 % (33.0-51.0); Hemoglobin* 10.0 gm/dL (12.0-16.0); Immature Granulocytes Abs Auto 0.04 K/uL (0.00-0.30); Immature Granulocytes Pct Auto 0.7 %; Mean Corpuscular HGB Conc 31 gm/dL (32-36); Mean Corpuscular Hemoglobin 30 pg (26-34); Mean Corpuscular Volume 97 fL (80-100); PCO2 VBG 41 mmHG (40-50); PO2 VBG 38.2 mmHG (25-47); RDW Coefficient of Variation % 14.3 % (11.5-15.5); Red Blood Count* 3.38 m/uL (4.00-5.20); White Blood Count* 5.36 K/uL (4.50-11.00); pH VBG 7.438 (7.32-7.43)
[2025-08-25 07:11] LABS: Lymphocytes Absolute Auto 0.80 K/uL (0.90-2.90); Slide Review Reflex No
[2025-08-25 07:31] LABS: Albumin* 2.9 g/dL (3.3-5.0); Chloride* 106 mmol/L (96-114)
[2025-08-25 07:32] LABS: Potassium* 4.2 mmol/L (3.6-5.1); Sodium* 136 mmol/L (135-149)
[2025-08-25 07:34] LABS: Blood Urea Nitrogen* 33 mg/dL (7-30); Creatinine* 0.9 mg/dL (0.5-1.5); Est. Creatinine Clearance* 42.25; Estimated Glomerular Filt Rate 63 ml/min
[2025-08-25 07:35] LABS: Alanine Aminotransferase* 23 U/L (4-35); Alkaline Phosphatase* 84 U/L (40-150); Anion Gap 2 mEq/L (7-15); Aspartate Amino Transferase* 41 U/L (12-35); Bilirubin Total* 0.7 mg/dL (0.1-1.5); Calcium* 8.7 mg/dL (8.4-10.6); Carbon Dioxide* 28 mmol/L (20-32); Glucose* 91 mg/dL (60-115); Total Protein* 5.4 g/dL (6.0-8.3)
[2025-08-25] MEDS: FEXOFENADINE 180 MG TABLET PO (09:01)
[2025-08-25] MEDS: ASPIRIN 81 MG TABLET EC PO (09:01)
[2025-08-25] MEDS: DOXYCYCLINE HYCLATE 100 MG PO (09:01)
--- NOTE | 2025-08-25 14:50 | P.IMPN_ITS ---
Assessment and Plan Assessment and plan (1) Acute hypoxemic respiratory failure: Problem comment: - No known h/o lung disease - Suspect pneumonia as below, but additionally appears to have previously undiagnosed ILD - Oxygen supplementation, treat pneumonia as below - may need oxygen supplementation at time of discharge from hospital. Will ask respiratory therapy to assess for home O2 needs when we have a safe discharge disposition plan. Status: Acute (2) Pneumonia: Problem comment: - Per history, symptoms are acute onset, URI last week - WBC, procalcitonin notably unremarkable. Check urine Strep, Legionella antigens. Differential includes inflammatory lung diseases 08/21 - changed rocephin/doxy to zosyn/doxy. added IV steroids, nebs. 08/22 - Added Aerobika use min of 4 times daily 08/23 - increase activities as tolerated 08/24 - will likely be able to switch from IV to oral antibiotics as early as tomorrow 08/25 - stabbed antibiotics. Receives 7 days of antibiotics in hospital. Status: Suspected (3) Lymphadenopathy: Problem comment: - Seen on CT chest 08/20/25, will need repeat imaging as outpatient in 1 month. Status: Acute (4) Enlarged thyroid: Problem comment: - seen on Chest CT. Check TSH, outpatient thyroid US. Status: Acute (5) Pacemaker: Problem comment: 05/2023 Status: Chronic (6) CKD (chronic kidney disease): Problem comment: CKD stage 3, at baseline (1.1-1.2, according to [facility] records) Status: Chronic (7) Hypotension: Problem comment: -MAP 61 -fluid bolus -close monitoring - may need ICU status -stat lactate, ABG, INR, Bilirubin - to assess for sepsis/shock 08/22 - stable. Continue to monitor and treat Status: Acute (8) Interstitial lung disease: Problem comment: - first noted on CXR and CT scan of lungs 08/20 and 08/21/25 - O2 requiring - would benefit from outpatient pulmonary consultation Status: Acute (9) Need for discharge planning: Problem comment: - Consider discharge disposition plans, including TCU services - patient prefers TCU transfer at time of discharge rather than discharge from the hospital directly home, if at all possible Status: Acute (10) Anemia of chronic disease: Problem comment: - hemoglobin around 10 Status: Acute Plan 1. Reviewed impression, plans, recommendations with patient 2. Answered patient's questions are satisfaction 3. Patient agreeable with above stated plans and recommendations Total Time Spent Total Time Spent: 40 minutes Subjective Date Seen: 08/25/25 Interval history: Admission history of present illness: ?84 year old female with h/o pacemaker, nonischemic cardiomyopathy, hyperlipidemia, vertigo, and multiple environmental allergies who presented through the emergency department for shortness of breath and weakness. She started feeling ill last Wednesday, like something was coming on, but no specific symptoms and then felt very fatigued on , like it had finally hit. She describes a very severe dry cough that completely wore her out. It felt like it was coming from her diaphragm and would just, on out of the blue without any tickles in her throat. On Wednesday she felt somewhat feverish and chilled, but that resolved and she has had no more fevers or chills. She continues to have the cough, although it is getting better. It completely wears her out and makes her feel short of breath with even the slightest bit of activity if she starts coughing. She denies any focal numbness weakness or tingling. She denies chest pain. She also notes a poor appetite since last Wednesday.? Hospital day 3, 08/22/2025: Indicates her dyspnea is slightly improved. Weakness is starting to improve. Still not able to transfer from supine to sitting and ambulate even 15 ft from edge of bed to bathroom due to weakness and dyspnea with exertion. Requiring bedside commode still. Continues to require oxygen supplementation at 4 liters/minute via nasal cannula continuously to maintain resting oxygen saturation values greater than or equal to 87%. Denies chest heaviness, pressure, tightness, pain. Denies syncope or near-syncope at this time. Does have a history of syncope or near-syncope in the past. In hindsight she indicates she has had increasing dyspnea with exertion worsening steadily since 2024. Hospital day 4, 08/23/2025: She indicates her mind feels a little clearer than yesterday. She is feeling a little stronger. She is making efforts to walk to and from the bathroom rather than use her bedside commode now. Does take a while for her to recover post ambulation to and from bathroom. Still requiring oxygen supplementation but at lower flow rates, 2.5 liters/minute via nasal cannula continuously verses 4-5 yesterday. Dry hacky cough still. Benefitting from use of Aerobika device. She is feeling more hopeful today than yesterday. She indicates her desired to be transferred to a transitional care unit now as opposed to back home with her daughter. She indicates she needs more time to recover sufficiently so that she can return home safely. Hospital day 5, 08/24/2025: Did not sleep well. When she awoke she was confused was not quite sure where she was at. Was able to reorient in a relatively short period of time. Worked with respiratory therapy today to establish a safe for oxygen delivery system, establishing that she does well on the 6 L Oxymizer mask with activities. Continue to await placement options. Hospital day 6, 08/25/2025: Decreased interest in eating and having a hard time sleeping. She tells me she is ready to when it is time. She tells me she is not depressed but not anxious to live. Satisfied with current level of support including with oxygen supplementation. Exam Narrative: Exam Narrative: I examine her in her hospital room. Appears comfortable and in no acute distress. Requires oxygen supplementation continuously, presently being delivered by Oxymizer. Lungs with rales and rhonchi. Heart tones with regular rhythm. Abdomen benign. Extremities without edema. Skin is intact. No focal motor neurologic deficits. Const: Vital Signs, click to edit/add: Vital Signs - 24 hr 08/24/25 15:00 08/24/25 15:00 08/24/25 15:00 Temperature 36.3 C L Pulse Rate Pulse Rate [Pulse Oximeter] 70 70 Respiratory Rate 22 22 Blood Pressure [Le ft Arm] 132/69 Blood Pressure [Ri ght Arm] Pulse Oximetry 88 88 Oxygen Delivery Me thod Nasal Cannula Oxygen Flow Rate 3 3 Fraction of Inspir ed Oxygen 08/24/25 15:00 08/24/25 19:00 08/24/25 23:00 Temperature 36.9 C 36.4 C L Pulse Rate 68 Pulse Rate [Pulse Oximeter] 69 68 Respiratory Rate 22 22 Blood Pressure [Le ft Arm] 121/63 95/72 Blood Pressure [Ri ght Arm] Pulse Oximetry 88 90 Oxygen Delivery Me thod Nasal Cannula Nasal Cannula Oxygen Flow Rate 3 2 Fraction of Inspir ed Oxygen 2.5 08/24/25 23:00 08/24/25 23:00 08/25/25 02:48 Temperature 36.6 C Pulse Rate Pulse Rate [Pulse Oximeter] 68 65 Respiratory Rate 22 22 20 Blood Pressure [Le ft Arm] Blood Pressure [Ri ght Arm] 78/54 L Pulse Oximetry 94 95 Oxygen Delivery Me thod Nasal Cannula Nasal Cannula Oxygen Flow Rate 2 2 Fraction of Inspir ed Oxygen 08/25/25 07:54 08/25/25 07:57 08/25/25 11:00 Temperature 36.1 C L 36.6 C Pulse Rate Pulse Rate [Pulse Oximeter] 69 68 Respiratory Rate 20 20 20 Blood Pressure [Le ft Arm] 127/57 L 125/61 Blood Pressure [Ri ght Arm] Pulse Oximetry 94 94 98 Oxygen Delivery Me thod Nasal Cannula Nasal Cannula Room Air Oxygen Flow Rate 3 Fraction of Inspir ed Oxygen Labs Labs: Laboratory Results - last 24 hr 08/25/25 06:40 WBC 5.36 RBC 3.38 L Hgb 10.0 L Hct 32.7 L MCV 97 MCH 30 MCHC 31 L RDW Coeff of Agata 14.3 Plt Count 114 L Neut % (Auto) 72.7 H Lymph % (Auto) 14.2 L [place] % (Auto) 7.5 Eos % (Auto) 4.9 Baso % (Auto) 0.0 Neut # (Auto) 3.90 Lymph # (Auto) 0.80 L [place] # (Auto) 0.40 Eos # (Auto) 0.26 Baso # (Auto) 0.00 Abs Immat Gran (auto) 0.04 Imm/Tot Granulo (auto) 0.7 VBG pH 7.438 H VBG pCO2 41 VBG pO2 38.2 VBG HCO3 28 Sodium 136 Potassium 4.2 Chloride 106 Carbon Dioxide 28 Anion Gap 2 L BUN 33 H Creatinine 0.9 Estimated Creat Clear 42.25 Estimated GFR 63 Glucose 91 Calcium 8.7 Magnesium 2.0 Total Bilirubin 0.7 AST 41 H ALT 23 Alkaline Phosphatase 84 C-Reactive Protein 12.2 H Total Protein 5.4 L Albumin 2.9 L
--- NOTE | 2025-08-25 20:07 | PC.NURSE ---
End of shift [id number] - pt alert, oriented, pleasant. Tolerating 3L O2 via oxymizer nasal cannula with no complaints of dryness or discomfort. Pt mood noted to be down with a decreased appetite. RN offered nutritional supplements, pt refused. Pt not up during shift and repositioning. Pt remarked that her tailbone was sore, RN provided education and emotional support, pt continued to refuse repositioning. Family visited bedside, pt appears to be resting comfortably in bed with call ligth within reach at end of shift.
[2025-08-25] MEDS: ROSUVASTATIN CALCIUM 10 MG TABLET PO (20:25)
[2025-08-25] MEDS: MELATONIN 3 MG TABLET PO (20:25)
[2025-08-25] MEDS: ACETAMINOPHEN 325 MG TABLET 650 MG PO (20:25)
[2025-08-25] MEDS: MIRTAZAPINE 15 MG TABLET 7.5 MG PO (20:26)
[2025-08-26] VITALS (7 sets, daily range): BP systolic 94–133; BP diastolic 52–82; PULSE 65–80; RESP 20; TEMP 36.2–37; O2SAT 91–98
--- NOTE | 2025-08-26 05:10 | PC.NURSE ---
Shift Note: Pt was willing to ambulate to the for HS cares. Pre-oxygenated for several minutes at 6L/O2 via oxymizer prior to ambulation and pt desaturated as low as 86%. Denied SOB but c/o coughing with deep breathing. She continues to report moderate intercostal discomfort with coughing, PRN Tylenol given. Pt states this takes the edge off but admits she is frustrated with the coughing altogether. Tolerates 1-2L/O2 via Oxymizer at rest with SpO2 93-95%.
[2025-08-26 07:20] LABS: HCO3 VBG 29 mmol/L (21-28); PCO2 VBG 50 mmHG (40-50); PO2 VBG < 30.1 mmHG (25-47); pH VBG 7.370 (7.32-7.43)
[2025-08-26 07:27] LABS: Hematocrit* 35.9 % (33.0-51.0); Hemoglobin* 10.9 gm/dL (12.0-16.0); Immature Granulocytes Abs Auto 0.02 K/uL (0.00-0.30); Immature Granulocytes Pct Auto 0.3 %; Mean Corpuscular HGB Conc 30 gm/dL (32-36); Mean Corpuscular Hemoglobin 30 pg (26-34); Mean Corpuscular Volume 97 fL (80-100); RDW Coefficient of Variation % 14.1 % (11.5-15.5); Red Blood Count* 3.69 m/uL (4.00-5.20); White Blood Count* 5.81 K/uL (4.50-11.00)
[2025-08-26 07:28] LABS: Anion Gap 7 mEq/L (7-15); Carbon Dioxide* 27 mmol/L (20-32); Chloride* 106 mmol/L (96-114); Glucose* 94 mg/dL (60-115); Potassium* 3.9 mmol/L (3.6-5.1); Sodium* 140 mmol/L (135-149)
[2025-08-26 07:30] LABS: Lymphocytes Absolute Auto 0.70 K/uL (0.90-2.90); Slide Review Reflex No
[2025-08-26 07:58] LABS: Albumin* 3.1 g/dL (3.3-5.0)
[2025-08-26 08:00] LABS: Alanine Aminotransferase* 24 U/L (4-35); Aspartate Amino Transferase* 39 U/L (12-35); Blood Urea Nitrogen* 31 mg/dL (7-30); Creatinine* 0.9 mg/dL (0.5-1.5); Est. Creatinine Clearance* 42.25; Estimated Glomerular Filt Rate 63 ml/min
[2025-08-26 08:01] LABS: Alkaline Phosphatase* 96 U/L (40-150); Bilirubin Total* 0.8 mg/dL (0.1-1.5); Calcium* 9.0 mg/dL (8.4-10.6); Total Protein* 5.6 g/dL (6.0-8.3)
[2025-08-26] MEDS: ASPIRIN 81 MG TABLET EC PO (10:51)
[2025-08-26] MEDS: FEXOFENADINE 180 MG TABLET PO (10:51)
--- NOTE | 2025-08-26 13:51 | PM.IMPN1 ---
Assessment and Plan Assessment and plan (1) Acute hypoxemic respiratory failure: Problem comment: - No known h/o lung disease - Suspect pneumonia as below, but additionally appears to have previously undiagnosed ILD - Oxygen supplementation, treat pneumonia as below - Will need oxygen supplementation at time of discharge from hospital. Presently requiring oxygen supplementation continuously, 2-3 liters/minute via nasal cannula at rest and 6 liters/minute via Oxymizer with exertional efforts to maintain resting oxygen saturation values greater than 86%. - continue to work with physical therapy and occupational therapy, increasing activities as tolerated Status: Acute (2) Pneumonia: Problem comment: - Per history, symptoms are acute onset, URI last week - WBC, procalcitonin notably unremarkable. Check urine Strep, Legionella antigens. Differential includes inflammatory lung diseases 08/21 - changed rocephin/doxy to zosyn/doxy. added IV steroids, nebs. 08/22 - Added Aerobika use min of 4 times daily 08/23 - increase activities as tolerated 08/24 - will likely be able to switch from IV to oral antibiotics as early as tomorrow 08/25 - stop all antibiotics. Received 7 days of antibiotics in hospital. Status: Suspected (3) Lymphadenopathy: Problem comment: - Seen on CT chest 08/20/25, will need repeat imaging as outpatient in 1 month. Status: Acute (4) Enlarged thyroid: Problem comment: - seen on Chest CT. Check TSH, outpatient thyroid US. Status: Acute (5) Pacemaker: Problem comment: 05/2023 Status: Chronic (6) CKD (chronic kidney disease): Problem comment: CKD stage 3, at baseline (1.1-1.2, according to [facility] records) Status: Chronic (7) Hypotension: Problem comment: -MAP 61 -fluid bolus -close monitoring - may need ICU status -stat lactate, ABG, INR, Bilirubin - to assess for sepsis/shock 08/22 - stable. Continue to monitor and treat Status: Acute (8) Interstitial lung disease: Problem comment: - first noted on CXR and CT scan of lungs 08/20 and 08/21/25 - O2 requiring now, and I suspect she may have been hypoxic previously but was unaware - would benefit from outpatient pulmonary consultation Status: Acute (9) Need for discharge planning: Problem comment: - Consider discharge disposition plans, including TCU services - patient prefers TCU transfer at time of discharge rather than discharge from the hospital directly home, if at all possible. She believes she may need termite control servicer placement Status: Acute (10) Anemia of chronic disease: Problem comment: - hemoglobin around 10 Status: Acute Plan 1. Reviewed impression, plan, recommendations with patient 2. Answered her questions are satisfaction 3. She has agree with above stated plan recommendations Subjective Date Seen: 08/26/25 Interval history: Admission history of present illness: ?84 year old female with h/o pacemaker, nonischemic cardiomyopathy, hyperlipidemia, vertigo, and multiple environmental allergies who presented through the emergency department for shortness of breath and weakness. She started feeling ill last Wednesday, like something was coming on, but no specific symptoms and then felt very fatigued on , like it had finally hit. She describes a very severe dry cough that completely wore her out. It felt like it was coming from her diaphragm and would just, on out of the blue without any tickles in her throat. On Wednesday she felt somewhat feverish and chilled, but that resolved and she has had no more fevers or chills. She continues to have the cough, although it is getting better. It completely wears her out and makes her feel short of breath with even the slightest bit of activity if she starts coughing. She denies any focal numbness weakness or tingling. She denies chest pain. She also notes a poor appetite since last Wednesday.? Hospital day 3, 08/22/2025: Indicates her dyspnea is slightly improved. Weakness is starting to improve. Still not able to transfer from supine to sitting and ambulate even 15 ft from edge of bed to bathroom due to weakness and dyspnea with exertion. Requiring bedside commode still. Continues to require oxygen supplementation at 4 liters/minute via nasal cannula continuously to maintain resting oxygen saturation values greater than or equal to 87%. Denies chest heaviness, pressure, tightness, pain. Denies syncope or near-syncope at this time. Does have a history of syncope or near-syncope in the past. In hindsight she indicates she has had increasing dyspnea with exertion worsening steadily since 2024. Hospital day 4, 08/23/2025: She indicates her mind feels a little clearer than yesterday. She is feeling a little stronger. She is making efforts to walk to and from the bathroom rather than use her bedside commode now. Does take a while for her to recover post ambulation to and from bathroom. Still requiring oxygen supplementation but at lower flow rates, 2.5 liters/minute via nasal cannula continuously verses 4-5 yesterday. Dry hacky cough still. Benefitting from use of Aerobika device. She is feeling more hopeful today than yesterday. She indicates her desired to be transferred to a transitional care unit now as opposed to back home with her daughter. She indicates she needs more time to recover sufficiently so that she can return home safely. Hospital day 5, 08/24/2025: Did not sleep well. When she awoke she was confused was not quite sure where she was at. Was able to reorient in a relatively short period of time. Worked with respiratory therapy today to establish a safe for oxygen delivery system, establishing that she does well on the 6 L Oxymizer mask with activities. Continue to await placement options. Hospital day 6, 08/25/2025: Decreased interest in eating and having a hard time sleeping. She tells me she is ready to when it is time. She tells me she is not depressed but not anxious to live. Satisfied with current level of support including with oxygen supplementation. Hospital day 7, 08/26/2025: We started mirtazapine 7.5 mg at at bedtime yesterday. She states she had good night sleep. Appetite is slowly improving. Tolerating increased activities today at bedside with physical therapy and occupational therapy and nursing staff. Participating more in physical and occupational therapy now. Continues to express desire for transitional care unit support verses long-term [facility] facility cares and services. Continues to require oxygen supplementation continuously, 2-3 liters/minute via nasal cannula when resting and up to 6 liters/minute via nasal cannula with Oxymizer with exertional efforts. Exam Narrative: Exam Narrative: Examine her in her hospital room. Appears comfortable. Tolerates transfer from supine to sitting and sitting to standing with standby assist only. Continues to have end inspiratory rales bibasilarly commensurate with known interstitial lung disease, with scattered rhonchi as well. Heart tones with regular rhythm, normal S1-S2. Abdomen with active bowel sounds, soft, nontender. Extremities without edema. Const: Vital Signs, click to edit/add: Vital Signs - 24 hr 08/25/25 15:00 08/25/25 15:00 08/25/25 19:00 Temperature 36.8 C 36.8 C Pulse Rate [Pulse Oximeter] 85 67 Respiratory Rate 20 20 20 Blood Pressure [Le ft Arm] 120/96 H Blood Pressure [Ri ght Arm] 126/57 L Pulse Oximetry 92 92 91 Oxygen Delivery Me thod Nasal Cannula Nasal Cannula Nasal Cannula Oxygen Flow Rate 3 08/25/25 23:00 08/25/25 23:00 08/25/25 23:00 Temperature 36.6 C Pulse Rate [Pulse Oximeter] 66 66 Respiratory Rate 20 20 20 Blood Pressure [Le ft Arm] Blood Pressure [Ri ght Arm] 89/57 L Pulse Oximetry 94 95 Oxygen Delivery Me thod Nasal Cannula Nasal Cannula Oxygen Flow Rate 2 08/26/25 03:00 08/26/25 07:00 08/26/25 07:00 Temperature 36.2 C L 36.7 C Pulse Rate [Pulse Oximeter] 68 70 Respiratory Rate 20 20 20 Blood Pressure [Le ft Arm] 127/56 L Blood Pressure [Ri ght Arm] 94/52 L Pulse Oximetry 97 93 93 Oxygen Delivery Me thod Nasal Cannula Nasal Cannula Nasal Cannula Oxygen Flow Rate 2 2 2 Labs Labs: Laboratory Results - last 24 hr 08/26/25 07:00 WBC 5.81 RBC 3.69 L Hgb 10.9 L Hct 35.9 MCV 97 MCH 30 MCHC 30 L RDW Coeff of Agata 14.1 Plt Count 107 L Neut % (Auto) 71.9 Lymph % (Auto) 12.4 L [place] % (Auto) 6.9 Eos % (Auto) 8.3 H Baso % (Auto) 0.2 Neut # (Auto) 4.18 Lymph # (Auto) 0.70 L [place] # (Auto) 0.40 Eos # (Auto) 0.50 Baso # (Auto) 0.01 Abs Immat Gran (auto) 0.02 Imm/Tot Granulo (auto) 0.3 VBG pH 7.370 VBG pCO2 50 VBG pO2 < 30.1 VBG HCO3 29 H Sodium 140 Potassium 3.9 Chloride 106 Carbon Dioxide 27 Anion Gap 7 BUN 31 H Creatinine 0.9 Estimated Creat Clear 42.25 Estimated GFR 63 Glucose 94 Calcium 9.0 Magnesium 2.0 Total Bilirubin 0.8 AST 39 H ALT 24 Alkaline Phosphatase 96 C-Reactive Protein 13.3 H Total Protein 5.6 L Albumin 3.1 L
--- NOTE | 2025-08-26 19:40 | PC.NURSE ---
End of shift [id number] - Pt alert, oriented, pleasant. Pt refused reposition and ambulation. Mood noted to be low with mild improvement to appetite during day. Pt reported wanting to change positions, sit at the edge of the bed, and use the bathroom , but when offered by the RN pt refused and said not now, later. Pt not up for RN during shift. Pt tolerating O2 via oxymizer nasal cannula at 2L that was weaned to 1L by end of shift with pt able to maintain O2 saturation. RN returned phone call from pt daughter, Cherry, and provided update. Pt appears to be resting comfortably in bed at end of shift with call light within reach.
[2025-08-26] MEDS: MIRTAZAPINE 15 MG TABLET 7.5 MG PO (21:17)
[2025-08-26] MEDS: ROSUVASTATIN CALCIUM 10 MG TABLET PO (21:17)
[2025-08-26] MEDS: MELATONIN 3 MG TABLET PO (22:01)
[2025-08-26] MEDS: FLUCONAZOLE 100 MG TABLET 200 MG PO (22:01)
[2025-08-26] MEDS: ACETAMINOPHEN 325 MG TABLET 650 MG PO (22:01)
[2025-08-27] VITALS (8 sets, daily range): BP systolic 105–131; BP diastolic 46–78; PULSE 65–74; RESP 18–24; TEMP 35.9–36.8; O2SAT 80–97
--- NOTE | 2025-08-27 06:31 | PC.NURSE ---
Shift Note: Pt ambulated to BR and was able to sit on shower chair and bathe with assistance. Pre-oxygenated on 6L/O2 via oxymizer and maintained oxymizer at 6L during activities. Pt weaned to 1-2L/O2 at rest. Desats into the mid 80's with activity. Poor appetite, declines snack offers.
[2025-08-27 06:42] LABS: HCO3 VBG 28 mmol/L (21-28); PCO2 VBG 45 mmHG (40-50); PO2 VBG 41.6 mmHG (25-47); pH VBG 7.403 (7.32-7.43)
[2025-08-27 06:44] LABS: Hematocrit* 31.0 % (33.0-51.0); Hemoglobin* 9.7 gm/dL (12.0-16.0); Immature Granulocytes Abs Auto 0.02 K/uL (0.00-0.30); Immature Granulocytes Pct Auto 0.3 %; Mean Corpuscular HGB Conc 31 gm/dL (32-36); Mean Corpuscular Hemoglobin 29 pg (26-34); Mean Corpuscular Volume 94 fL (80-100); RDW Coefficient of Variation % 14.3 % (11.5-15.5); Red Blood Count* 3.30 m/uL (4.00-5.20); White Blood Count* 6.83 K/uL (4.50-11.00)
[2025-08-27 06:46] LABS: Lymphocytes Absolute Auto 0.70 K/uL (0.90-2.90); Slide Review Reflex No
[2025-08-27 07:01] LABS: Albumin* 2.5 g/dL (3.3-5.0); Chloride* 105 mmol/L (96-114)
[2025-08-27 07:02] LABS: Potassium* 4.2 mmol/L (3.6-5.1); Sodium* 135 mmol/L (135-149)
[2025-08-27 07:04] LABS: Alanine Aminotransferase* 18 U/L (4-35); Aspartate Amino Transferase* 31 U/L (12-35); Blood Urea Nitrogen* 27 mg/dL (7-30); Creatinine* 0.8 mg/dL (0.5-1.5); Est. Creatinine Clearance* 42.25; Estimated Glomerular Filt Rate 73 ml/min
[2025-08-27 07:05] LABS: Alkaline Phosphatase* 87 U/L (40-150); Anion Gap 1 mEq/L (7-15); Bilirubin Total* 0.6 mg/dL (0.1-1.5); Calcium* 8.4 mg/dL (8.4-10.6); Carbon Dioxide* 29 mmol/L (20-32); Glucose* 96 mg/dL (60-115); Total Protein* 4.8 g/dL (6.0-8.3)
[2025-08-27] MEDS: ASPIRIN 81 MG TABLET EC PO (09:55)
[2025-08-27] MEDS: FEXOFENADINE 180 MG TABLET PO (09:56)
[2025-08-27] MEDS: FLUCONAZOLE 100 MG TABLET PO (09:56)
--- NOTE | 2025-08-27 12:39 | PC.SOCIAL ---
Discharge Planning: Tried reaching patient in her room by phone but had no answer. Called three facilities to inquire if they take a patient on high flow oxygen, 6L with activity. 1. [facility]-Cannot accommodate 2. [facility]-Cannot accommodate. 3. [facility]-Can assess if patient is on a high flow concentrator. Sales Promotion Director will continue to work on discharge planning needs.
--- NOTE | 2025-08-27 13:38 | RESP.RT ---
Oxygen need; Patient up in chair, SaO2 .21 87%, walking 25 ft SaO2 80% on .21, Added O2 to OxyMizer 2 Lpm SaO2 82%, 4 Lpm SaO2 84%, 6 Lpm SaO2 89%, Back resting in chair Patient needed 4 minutes to reach SaO2 >95%. return to OxyMizer nasal cannula, 2 Lpm to SaO2 94%. During walk patient made no comment on if she was SOB when asked. Patient has good clear voice, BBS diminished bilaterally, more so in both bases, with scattered fine crackles.
--- NOTE | 2025-08-27 14:18 | PM.IMPN1 ---
Assessment and Plan Assessment and plan (1) Acute hypoxemic respiratory failure: Problem comment: - No previous known h/o lung disease - Suspect pneumonia as below, but additionally appears to have previously undiagnosed ILD - Oxygen supplementation, treat pneumonia as below - completed antibiotic course - Will need oxygen supplementation at time of discharge from hospital. Presently requiring oxygen supplementation continuously, 2-3 liters/minute via nasal cannula at rest and 6 liters/minute via Oxymizer with exertional efforts to maintain resting oxygen saturation values greater than 86%. - continue to work with physical therapy and occupational therapy, increasing activities as tolerated 08/27: per RT: Oxygen need; Patient up in chair, SaO2 .21 87%, walking 25 ft SaO2 80% on ., Added O2 to OxyMizer 2 Lpm SaO2 82%, 4 Lpm SaO2 84%, 6 Lpm SaO2 89%, Back resting in chair Patient needed 4 minutes to reach SaO2 >95%. return to OxyMizer nasal cannula, 2 Lpm to SaO2 94%. During walk patient made no comment on if she was SOB when asked. Patient has good clear voice, BBS diminished bilaterally, more so in both bases, with scattered fine crackles. Status: Acute (2) Pneumonia: Problem comment: - Per history, symptoms are acute onset, URI last week - WBC, procalcitonin notably unremarkable. Check urine Strep, Legionella antigens. Differential includes inflammatory lung diseases 08/21 - changed rocephin/doxy to zosyn/doxy. added IV steroids, nebs. 08/22 - Added Aerobika use min of 4 times daily 08/23 - increase activities as tolerated 08/24 - will likely be able to switch from IV to oral antibiotics as early as tomorrow 08/25 - stop all antibiotics. Received 7 days of antibiotics in hospital. Status: Suspected (3) Interstitial lung disease: Problem comment: - first noted on CXR and CT scan of lungs 08/20 and 08/21/25 - O2 requiring now, and I suspect she may have been hypoxic previously but was unaware - would benefit from outpatient pulmonary consultation Status: Acute (4) Hypotension: Problem comment: -MAP 61 -fluid bolus prn 08/22 - stable. Continue to monitor and treat Status: Acute (5) Lymphadenopathy: Problem comment: - Seen on CT chest 08/20/25, will need repeat imaging as outpatient in 1 month. Status: Acute (6) Enlarged thyroid: Problem comment: - seen on Chest CT. TSH 1.57, outpatient thyroid US. Status: Acute (7) Pacemaker: Problem comment: 05/2023 Status: Chronic (8) CKD (chronic kidney disease): Problem comment: CKD stage 3, at baseline (1.1-1.2, according to [facility] records) Status: Chronic (9) Anemia of chronic disease: Problem comment: - hemoglobin around 10 Status: Acute (10) Need for discharge planning: Problem comment: - patient prefers TCU transfer at time of discharge rather than discharge from the hospital directly home, if at all possible. She believes she may need assisted placement - social service agency director assisting with placement, likely TCU given oxygen needs Status: Acute Plan Awaiting placement Total Time Spent Total Time Spent: Today I spent 45 minutes seeing the patient, reviewing Expanse and EPIC notes/diagnostics, discussing the care plan with our care time that includes social work, PT/OT, pharmacy, RT, [facility] and documenting my impressions and plan in the medical record. Subjective Date Seen: 08/27/25 Interval history: Patient is seen sitting up in bed this morning. Appears mildly dyspneic on 2 L. denies headache or dizziness. Denies chest pain. Does not have much of an appetite. Blames it mostly on oral thrush. Was started on fluconazole and has had some improvement already. Respiratory therapy assess patient today. Will continue to require 2 L at rest and up to 6 L with activity. Awaiting placement, likely require NH given oxygen needs. Exam Narrative: Exam Narrative: PHYSICAL EXAM General: Pleasant, appropriately conversant, NAD Cardiovascular: RRR, S1S2 Pulmonary: Decreased breath sounds throughout, no rhonchi. Mild dyspnea Abdominal: Soft, nondistended, NTTP Neurological: Alert, answering questions appropriately, cranial nerves intact, no focal findings Extremities: No gross joint deformity or swelling. AROMI. Neurovascularly intact Skin: Warm, dry. Const: Vital Signs, click to edit/add: Vital Signs - 24 hr 08/26/25 15:00 08/26/25 15:00 08/26/25 19:00 Temperature 98.6 F 98.3 F Pulse Rate [Pulse Oximeter] 68 80 Respiratory Rate 20 20 20 Blood Pressure [Le ft Arm] 133/72 Blood Pressure [Ri ght Arm] 133/72 Pulse Oximetry 93 98 91 Oxygen Delivery Me thod Nasal Cannula Nasal Cannula Nasal Cannula Oxygen Flow Rate 1 2 2 08/26/25 21:37 08/26/25 23:00 08/26/25 23:00 Temperature 97.6 F Pulse Rate [Pulse Oximeter] 65 68 Respiratory Rate 20 20 20 Blood Pressure [Le ft Arm] Blood Pressure [Ri ght Arm] 100/82 Pulse Oximetry 91 95 Oxygen Delivery Me thod Nasal Cannula Nasal Cannula Oxygen Flow Rate 2 2 08/27/25 03:00 08/27/25 07:00 08/27/25 07:00 Temperature 96.9 F L 97.8 F Pulse Rate [Pulse Oximeter] 65 65 Respiratory Rate 20 24 24 Blood Pressure [Le ft Arm] Blood Pressure [Ri ght Arm] 111/46 L 131/63 Pulse Oximetry 95 96 95 Oxygen Delivery Me thod Nasal Cannula [place] Nasal Ca nnula [place] Nasal Ca nnula Oxygen Flow Rate 2 2 2 08/27/25 07:00 08/27/25 11:00 08/27/25 13:35 Temperature 98.3 F Pulse Rate [Pulse Oximeter] 65 67 Respiratory Rate 24 24 20 Blood Pressure [Le ft Arm] Blood Pressure [Ri ght Arm] 108/48 L Pulse Oximetry 97 93 Oxygen Delivery Me thod [place] Nasal Ca nnula [place] Nasal Ca nnula Oxygen Flow Rate 2 2 Labs Labs: Laboratory Results - last 24 hr 08/27/25 06:08 WBC 6.83 RBC 3.30 L Hgb 9.7 L Hct 31.0 L MCV 94 MCH 29 MCHC 31 L RDW Coeff of Agata 14.3 Plt Count 94 L Neut % (Auto) 71.9 Lymph % (Auto) 10.8 L [place] % (Auto) 8.9 Eos % (Auto) 7.8 H Baso % (Auto) 0.3 Neut # (Auto) 4.91 Lymph # (Auto) 0.70 L [place] # (Auto) 0.60 Eos # (Auto) 0.50 Baso # (Auto) 0.02 Abs Immat Gran (auto) 0.02 Imm/Tot Granulo (auto) 0.3 VBG pH 7.403 VBG pCO2 45 VBG pO2 41.6 VBG HCO3 28 Sodium 135 Potassium 4.2 Chloride 105 Carbon Dioxide 29 Anion Gap 1 L BUN 27 Creatinine 0.8 Estimated Creat Clear 42.25 Estimated GFR 73 Glucose 96 Calcium 8.4 Magnesium 1.9 Total Bilirubin 0.6 AST 31 ALT 18 Alkaline Phosphatase 87 C-Reactive Protein 8.5 H Total Protein 4.8 L Albumin 2.5 L
--- NOTE | 2025-08-27 14:57 | PC.NURSE ---
End of shift-- Very pleasant and cooperative, alert and oriented pt. VSS and pt is afebrile. SPO2 maintained >90% on 2L per Oxymizer at rest and O2 increased to 6L with exertion. She denied any pain, but did c/o discomfort r/t oral thrush. Crackles auscultated in bilateral posterior bases of lungs. Pt continues to have a cough. She denied nausea but declined breakfast. She did eat 75-100% of a regular lunch. Pt was up to the chair and BR and ambulated in room with SBA and tolerated it fair. Report to oncoming shift.
--- NOTE | 2025-08-27 18:17 | PC.NURSE ---
End of shift [id number]: Pt AxOx4, pleasant, and cooperative with cares. Oxygen sats maintained >90% on 2L per Oxymizer while resting in chair. O2 needs to be increased to 6L with exertion. SBA. Denies any pain, although reporting uncomfortable oral thrush. Cloth Washer Operator offered PRN medication, Pt refused. Active cough. Pt refused dinner and refused offered nutritional supplement. Family at bedside. Call light within reach. Drinking adequate fluids.
[2025-08-27] MEDS: ROSUVASTATIN CALCIUM 10 MG TABLET PO (20:53)
[2025-08-27] MEDS: MIRTAZAPINE 15 MG TABLET 7.5 MG PO (20:53)
[2025-08-28 04:00] VITALS: BP 121/52; PULSE 65; RESP 20; TEMP 36.4; O2SAT 93
[2025-08-28] MEDS: ACETAMINOPHEN 325 MG TABLET 650 MG PO (05:23)
--- NOTE | 2025-08-28 05:55 | PC.NURSE ---
Pt pleasant and cooperative with cares, assist of 1 w/walker and gait belt. Pt reported pain 2-8/10 throughout shift, prn pain med given. pt on O2 NC, pt is >90%. Pt slept throughout shift, vss. Pt sleeping comfortably at this time, will continue to monitor
[2025-08-28 07:00] VITALS: BP 111/64; PULSE 70; RESP 20; TEMP 36.2; O2SAT 95
--- NOTE | 2025-08-28 08:17 | PC.SOCIAL ---
Discharge planning: Late entry: On 08/27/25, met with pt and family regarding d/c plan. Pt and family are pleased with plan for short term rehab at [facility]. This facility is close to family and they can visit easily. Received email from [facility] stating they can accept pt 08/28/25 to a private room with shared bath. food service worker to follow up as needed.
[2025-08-28] MEDS: FLUCONAZOLE 100 MG TABLET PO (08:41)
[2025-08-28] MEDS: ASPIRIN 81 MG TABLET EC PO (08:41)
[2025-08-28] MEDS: FEXOFENADINE 180 MG TABLET PO (08:41)
--- NOTE | 2025-08-28 09:31 | P.DS_ITS ---
DS: Providers Provider Date Seen: 08/28/25 Date of admission: 08/20/25 16:49 Primary care physician: Jenna Gallegos DO Admitting Clinician: Temitope Perez MD Consults: 08/20/25 18:26 Consult to Occupational Therapy [CONS] Routine Comment: Reason(s) for OT Consult:: Evaluate and Treat Any Restrictions?:: No Restrictions Consult to Physical Therapy [CONS] Routine Comment: Reason(s) for PT Consult:: Evaluate and Treat Any Restrictions?:: No Restrictions Consult to Respiratory Therapy [CONS] Routine Comment: Reason(s) for RT Consult:: Consult Consult to Ruffler [CONS] Routine Comment: Reason for Consult:: Discharge Planning Needs Attending Physician on discharge: Fabiola Weber [facility], PA[facility]atherC [facility] Date of Discharge: 08/28/25 DS: Diagnosis Discharge Diagnosis (1) Acute hypoxemic respiratory failure: Status: Acute Problem details: - No previous known h/o lung disease - Suspect pneumonia as below, but additionally appears to have previously undiagnosed ILD - Oxygen supplementation, treat pneumonia as below - completed antibiotic course - Will need oxygen supplementation at time of discharge from hospital - continue to work with physical therapy and occupational therapy, increasing activities as tolerated 08/27: per RT: Oxygen need; Patient up in chair, SaO2 .21 87%, walking 25 ft SaO2 80% on .21, Added O2 to OxyMizer 2 Lpm SaO2 82%, 4 Lpm SaO2 84%, 6 Lpm SaO2 89%, Back resting in chair Patient needed 4 minutes to reach SaO2 >95%. return to OxyMizer nasal cannula, 2 Lpm to SaO2 94%. During walk patient made no comment on if she was SOB when asked. Patient has good clear voice, BBS diminished bilaterally, more so in both bases, with scattered fine crackles. Sustained hypoxia at time of discharge. Will continue to require oxygen supplementation continuously, 2-3 liters/minute via nasal cannula at rest and 6 liters/minute via Oxymizer with exertional efforts to maintain resting oxygen saturation values greater than 86%. Has completed a 7 day course of IV antibiotics for community-acquired pneumonia. Recommend outpatient follow-up with pulmonology. (2) Pneumonia: Status: Acute Problem details: THERAPY COMPLETED - Per history, symptoms are acute onset, URI last week - WBC, procalcitonin notably unremarkable. Check urine Strep, Legionella antigens. Differential includes inflammatory lung diseases 08/21 - changed rocephin/doxy to zosyn/doxy. added IV steroids, nebs. 08/22 - Added Aerobika use min of 4 times daily 08/23 - increase activities as tolerated 08/24 - will likely be able to switch from IV to oral antibiotics as early as tomorrow 08/25 - discontinued all antibiotics - completed 7 day course (3) Interstitial lung disease: Status: Acute Problem details: New diagnosis, first noted on CXR and CT scan of lungs 08/20 and 08/21/25. Remains hypoxic, requiring supplemental oxygen, and I suspect she may have been hypoxic previously but was unaware. Recommend outpatient pulmonary consultation (4) Hypotension: Status: Resolved Problem details: -MAP 61 -fluid bolus prn (5) Lymphadenopathy: Status: Acute Problem details: - Seen on CT chest 08/20/25, will need repeat imaging as outpatient in 1 month (6) Enlarged thyroid: Status: Acute Problem details: - seen on Chest CT. TSH 1.57, outpatient thyroid US (7) Pacemaker: Status: Chronic Problem details: 05/2023 (8) CKD (chronic kidney disease): Status: Chronic Problem details: CKD stage 3, at baseline (1.1-1.2, according to [facility] records) (9) Anemia of chronic disease: Status: Acute Problem details: - hemoglobin stable around 10 (10) Need for discharge planning: Status: Resolved Problem details: - patient prefers TCU transfer at time of discharge rather than discharge from the hospital directly home, if at all possible. 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 Admitted with acute hypoxic respiratory failure in setting of community-acquired pneumonia, newly diagnosed ILD. Completed 7 day course of antibiotics for pneumonia. Remains hypoxic and oxygen dependent at time of discharge. Will need outpatient pulmonology evaluation and further management recommendations. Will also need outpatient repeat CT imaging of the chest for lymphadenopathy and thyroid ultrasound for enlarged thyroid. Status at Discharge Functional status at discharge: uses cane/walker Overall status at discharge: patient is not back to baseline Time Spent with Patient Time attestation: Total time spent providing and/or coordinating discharge services: Time spent: Greater than 30 minutes Exam Narrative: Exam Narrative: PHYSICAL EXAM General: Pleasant, conversant, NAD Cardiovascular: RRR Pulmonary: Mild dyspnea on Oxymizer Neurological: Alert, answering questions appropriately Skin: Warm, dry. Const: Vital Signs, click to edit/add: Vital Signs - 24 hr 08/27/25 11:00 08/27/25 13:35 08/27/25 15:30 Temperature 98.3 F Pulse Rate [Pulse Oximeter] 67 Respiratory Rate 24 20 20 Blood Pressure [Le ft Arm] Blood Pressure [Ri ght Arm] 108/48 L Pulse Oximetry 97 93 90 Oxygen Delivery Me thod Zemple Nasal Ca nnula Zemple Nasal Ca nnula Zemple Nasal Ca nnula Oxygen Flow Rate 2 2 2 08/27/25 15:30 08/27/25 19:00 08/27/25 23:00 Temperature 98.1 F 97 F L Pulse Rate [Pulse Oximeter] 74 68 68 Respiratory Rate 20 20 20 Blood Pressure [Le ft Arm] 121/78 Blood Pressure [Ri ght Arm] 105/50 L Pulse Oximetry 90 90 Oxygen Delivery Me thod Zemple Nasal Ca nnula Nasal Cannula Oxygen Flow Rate 2 2 08/27/25 23:00 08/27/25 23:00 08/28/25 04:00 Temperature 96.7 F L 97.5 F L Pulse Rate [Pulse Oximeter] 69 65 Respiratory Rate 20 18 20 Blood Pressure [Le ft Arm] 127/76 121/52 L Blood Pressure [Ri ght Arm] Pulse Oximetry 90 94 93 Oxygen Delivery Me thod Nasal Cannula Nasal Cannula Nasal Cannula Oxygen Flow Rate 3 3 2 08/28/25 07:00 08/28/25 07:00 Temperature 97.2 F L Pulse Rate [Pulse Oximeter] 70 Respiratory Rate 20 20 Blood Pressure [Le ft Arm] 111/64 Blood Pressure [Ri ght Arm] Pulse Oximetry 95 95 Oxygen Delivery Me thod Nasal Cannula Nasal Cannula Oxygen Flow Rate 2 2 DS: Data Imaging CTA chest: Attestation: I have reviewed the pertinent imaging results. Radiologist's impression: Evaluation for pulmonary embolism is limited by motion. No pulmonary embolism is seen. The aorta is unopacified. Nonaneurysmal. Lower lobe traction bronchiectasis is seen. There is extensive lower lobe predominant patchy ground-glass which is more peripheral within the upper lung alba. There is some peripheral reticulation. There may be early lower lobe honeycombing with no definitive honeycombing otherwise seen. No significant pleural effusion. The thyroid is prominent with likely nodularity. Follow-up thyroid ultrasound is recommended. Prominent precarinal lymph nodes noted. Recommend close attention on follow-up. Prominent left hilar lymph node is also noted measuring approximate 12 millimeters (series 4, image 95). Cardiomegaly is present. No significant effusion. Left pacemaker is noted. Images of the upper abdomen are unremarkable. No fractures. IMPRESSION: 1. Extensive lower lobe predominant patchy ground-glass with traction bronchiectasis. Differential includes diffuse lung injury. Interstitial lung disease, and combination of interstitial lung disease and superimposed pneumonia. Recommend correlation with a patient`s clinical history. Short-term high-resolution chest CT is recommended in 1 month. 2. No definite pulmonary embolism is seen. 3. Indeterminate mediastinal/hilar lymphadenopathy. Recommend close attention on follow-up. 4. Enlarged thyroid. Recommend correlation with routine thyroid ultrasound. Discharge Plan Discharge Disposition: [facility] Date of Admission: 08/20/25 16:49 Attending Provider on Discharge: Fabiola Weber Primary Care Provider: Jenna Gallegos Condition: Stable Anticipated Discharge Date/Time: 08/28/25 09:19 Discharge Medications: New fluconazole 100 mg Tablet 100 mg PO DAILY 14 Days Qty: 14 0RF mirtazapine 15 mg Tablet 7.5 mg PO HS Qty: 30 0RF Magic Mouthwash (Lidocaine/Benadryl/Maalox) 120 mL suspension 5 ml PO QID PRN (Reason: oral pain/thrush) Qty: 120 0RF Rx Instructions: Lidocaine Viscous 2 % mucosal solution 40 mL; Maalox 200 mg-200 mg-20 mg/5 mL oral suspension 40 mL; Benadryl 12.5 mg/5 mL oral elixir 40 mL; Per 120 mL SWISH AND SPIT. MAY COMPOUND IF FIRST PRODUCT IS NOT AVAILABLE. Continued metoprolol succinate 25 mg tablet extended release 24 hr 12.5 mg PO DAILY lisinopril 5 mg tablet 5 mg PO DAILY aspirin [[place] Aspirin] 81 mg tablet,delayed release (DR/EC) 81 mg PO DAILY fexofenadine [Rona Allergy] 180 mg tablet 180 mg PO DAILY ipratropium bromide 21 mcg (0.03 %) spray,non-aerosol 2 spray INTRANASAL TID rosuvastatin 10 mg tablet 10 mg PO HS meclizine 25 mg tablet,chewable 25 mg PO TID PRN (Reason: vertigo) Discharge Orders: Discharge Order (Routine); Ordered 08/28/25 Ordered By: Fabiola Weber Additional Instructions: Completed 7 day course of IV antibiotics for community-acquired pneumonia. Remains oxygen dependent as noted below. Recommend outpatient pulmonology evaluation. Will need outpatient follow-up with repeat CT imaging of the chest and thyroid ultrasound. Activity Level: Activity as Tolerated Discharge Diet: Regular Follow Up Appointments: Jenna Gallegos DO [Primary Care Provider, Family Practice] Provider,Not a Local [Non-Staff, Family Practice] Forms: [employer] Info Instructions Admit to: SNF Discharge Potential: Fair Length of Stay: <30 days Can use facility standing orders?: Yes Code Status: DNR/DNI Rehab Potential: Fair Therapy: Physical Therapy and Occupational Therapy Therapy Orders: Evaluate and Treat Oxygen: Yes Oxygen Delivery Method: Oximizer Oxygen Flow Rate: 1-2L at rest, up to 6L with activity as needed to maintain resting sats >86 Urinary Catheter: No Orders are good >30 days: No Signature: Fabiola Weber, THELMA, PA-C
--- NOTE | 2025-08-28 10:53 | PC.SOCIAL ---
Pt. has been accepted to [facility] today. Non-emergency EMS is set up for 11:00-11:30 transport due to patient's oxygen needs. PAS completed # [id number].
[2025-08-28 11:00] VITALS: BP 113/54; PULSE 75; RESP 16; TEMP 36.3; O2SAT 92
--- NOTE | 2025-08-28 19:37 | PC.NURSE ---
Discharge - Pt alert, oriented, cooperative. Up with standby assistance and walker/gait belt. Pt tolerating O2 via nasal cannula at 2L at rest and 6L with activity via oxymizer. Pt denied pain. RN encouraged pt to eat and drink, pt compliant. Pt mood noted to improve with d/c plan. Pt d/c to [facility] via non emergent EMS at approximately 1540.
== END 2025-08-28 15:40 | DRG 193 ==
LOC: ED 15:42 → MEDSURG 16:25
PROVIDERS: Family Medicine; Admitting Provider Family Medicine; Emergency Provider Emergency Medicine; PCP Family Medicine; Visit Provider Orthopaedic Surgery
DX: J18.9 Pneumonia, unspecified organism (principal); J96.01 Acute respiratory failure with hypoxia; J84.9 Interstitial pulmonary disease, unspecified; I42.8 Other cardiomyopathies; I95.9 Hypotension, unspecified; R59.1 Generalized enlarged lymph nodes; I12.9 Hypertensive chronic kidney disease with stage 1 through stage 4 chronic kidney disease, or unspecified chronic kidney disease; N18.30 Chronic kidney disease, stage 3 unspecified; D63.1 Anemia in chronic kidney disease; E04.9 Nontoxic goiter, unspecified; Z95.0 Presence of cardiac pacemaker; E78.5 Hyperlipidemia, unspecified
CPT/HCPCS: 36415; 36600; 71275; 80053; 82247; 82803; 83605; 83735; 83880; 84145; 84443; 84484; 85025; 85610; 86140; 87040; 87449; 87631; 87899; 93005; 93306; 94640; 94664; 94761; 97110; 97112; 97116; 97161; 97165; 97530; 97535; 99284; 99285; A9270; J0696; J1938; J2543; J2919; J7030; Q9967

== ENCOUNTER 2025-08-28 15:24 | Outpatient (CLI) | payer MEDICARE, BC, SELFPAY | END 2025-08-28 15:25 | disposition home or self-care (01) | LOC: AMB 09-03 13:46 | PROVIDERS: PCP Family Medicine; Visit Provider Family Medicine | DX: J96.01 Acute respiratory failure with hypoxia (principal); J18.9 Pneumonia, unspecified organism | CPT/HCPCS: A0425; A0428 ==